=== PATIENT | male | born 1960 | race Caucasian/White ===

== ENCOUNTER 2016-12-13 10:39 | Emergency (ER) | payer OTHER, MEDICARE ==
[~2016-12-13] VITALS: Ht 177.8 cm; Wt 98.4 kg
[~2016-12-13 10:39] MED LIST: ALPR2TAB2 PO; AMIT50TA PO; ASPI-621 PO; CITA20TA5 PO; CLOP75TA22 PO; DOCU-30 PO; LOSA1TAB18 PO; METO25TA35 PO/NG; METO25TA4 PO; MIRT15TA4 PO; MIRT30TA4 PO; MORP15TA39 PO; OLAN10TA9 PO; OLAN5TAB9 PO; OMEP-110 PO; OXYC-302 PO; OXYC10TA6 PO; OXYC20TA42 PO; QUET300T6 PO; SIMV40TA3 PO; Simvastatin PO; VALS160T3 PO; ZOLP10TA PO
[2016-12-13] MEDS ORDERED: SODIUM CHLORIDE FLUSH 10ML SYR IVF ONE (11:00)
[2016-12-13] MEDS ORDERED: MORPHINE SULFATE 4 MG/ML, 1ML IVPush PRN (11:00)
[2016-12-13] MEDS ORDERED: ONDANSETRON 2MG/ML, 2ML IVPush ONE (11:00)
[2016-12-13] MEDS ORDERED: ASPIRIN 81 MG TABLET CHEW PO ONE (11:00)
[2016-12-13] MEDS ORDERED: ONDANSETRON 2MG/ML, 2ML ONE (11:01)
[2016-12-13] MEDS ORDERED: MORPHINE SULFATE 4 MG/ML, 1ML ONE (11:01)
[2016-12-13 11:38] LABS: ASPARTATE AMINO TRANSFERASE 14 U/L (15-37); BLOOD UREA NITROGEN 21 mg/dL (7-18)
[2016-12-13 11:42] LABS: IS PT STATUS REG ER OR PRE ER? YES
[2016-12-13] MEDS ORDERED: ASPIRIN 81 MG TABLET CHEW ONE (11:47)
[2016-12-13] MEDS ORDERED: MAALOX/HYOSCYAMINE/LIDOCAINE 45 ML BOTTLE ONE (12:25)
[2016-12-13] MEDS ORDERED: MAALOX/HYOSCYAMINE/LIDOCAINE 45 ML BOTTLE PO ONE (12:30)
[2016-12-13] MEDS ORDERED: OMNIPAQUE 350 MG/ML, 100ML BOTTLE ONE (13:40)
[2016-12-13 13:56] LABS: IS PT STATUS REG ER OR PRE ER? YES
[2016-12-13 15:06] VITALS: BP 128/70
== END 2016-12-13 15:08 | disposition home or self-care (01) ==
LOC: SUATTDRO 12:32 → ED 13:30
PROVIDERS: ATTEND Internal Medicine
DX: R07.89 Other chest pain (principal); R06.00 Dyspnea, unspecified; R61 Generalized hyperhidrosis; I10 Essential (primary) hypertension; J44.9 Chronic obstructive pulmonary disease, unspecified; E78.5 Hyperlipidemia, unspecified; I25.10 Atherosclerotic heart disease of native coronary artery without angina pectoris; Z95.1 Presence of aortocoronary bypass graft; Z87.891 Personal history of nicotine dependence
CPT/HCPCS: 36415; 71010; 71275; 80053; 84484; 85025; 85610; 85730; 93005; 96374; 99285; J2405; Q9967

== ENCOUNTER → 2017-01-27 | Outpatient (CLI) | payer OTHER, MEDICARE ==
[~2017-01-27] MED LIST changes: +FENTANYL PF 100 MCG/2ML ONE; +MIDAZOLAM 1 MG/ML, 5ML ONE
== END | disposition home or self-care (01) ==
LOC: RAD 11:56
PROVIDERS: ATTEND Family Medicine
DX: M48.07 Spinal stenosis, lumbosacral region (principal); M51.26 Other intervertebral disc displacement, lumbar region; M43.15 Spondylolisthesis, thoracolumbar region; M51.46 Schmorl's nodes, lumbar region; R60.0 Localized edema; M25.78 Osteophyte, vertebrae; Z98.1 Arthrodesis status
CPT/HCPCS: 72148; 99156; 99157; J2250; J3010

== ENCOUNTER → 2017-02-10 | Outpatient (CLI) | payer OTHER, MEDICARE ==
[~2017-02-10] MED LIST changes: -FENTANYL PF 100 MCG/2ML ONE; -MIDAZOLAM 1 MG/ML, 5ML ONE; +MORP-52 PO; -MORP15TA39 PO
== END | disposition home or self-care (01) ==
LOC: CVU 07:44
PROVIDERS: ATTEND Surgery Vascular Surgery
DX: I71.4 Abdominal aortic aneurysm, without rupture (principal)
CPT/HCPCS: 93978

== ENCOUNTER 2017-04-03 14:40 | Inpatient (IN) | payer OTHER, MEDICARE ==
[~2017-04-03] VITALS: Ht 180.3 cm; Wt 80.8 kg
[2017-04-03] MEDS ORDERED: ASPIRIN 81 MG TABLET CHEW PO ONE (15:00)
[2017-04-03] MEDS ORDERED: NITROGLYCERIN SINGLE TAB 0.4 MG SL ONE ×2 (15:13→18:14)
[2017-04-03] MEDS ORDERED: MORPHINE SULFATE 4 MG/ML, 1ML ONE ×2 (15:13→18:47)
[2017-04-03] MEDS ORDERED: ASPIRIN 81 MG TABLET CHEW ONE (15:13)
[2017-04-03] MEDS: MORPHINE SULFATE 4 MG/ML, 1ML IVPush PRN ×2 (15:17→18:50)
[2017-04-03] MEDS: NITROGLYCERIN SINGLE TAB 0.4 MG SL PRN (15:18)
[2017-04-03 15:27] LABS: HEMATOCRIT 52.3 % (39.2-51.8); HEMOGLOBIN 17.3 g/dL (13.7-18.0); WHITE BLOOD COUNT 11.8 x10^3/uL (3.4-10)
[2017-04-03] MEDS ORDERED: SODIUM CHLORIDE FLUSH 10ML SYR IVF ONE (15:30)
[2017-04-03 15:53] LABS: BLOOD UREA NITROGEN 20 mg/dL (7-18)
[2017-04-03] MEDS ORDERED: OMNIPAQUE 350 MG/ML, 100ML BOTTLE ONE (17:26)
[2017-04-03] MEDS ORDERED: HEPARIN 5,000 UNITS/ML, 1ML IV ONE (19:00)
[2017-04-03] MEDS ORDERED: HEPARIN 25,000 UNITS/500ML PMX 500 ML IV PRN (19:00)
[2017-04-03] MEDS ORDERED: NITROGLYCERIN OINT 2%, 1GM TP ONE ×2 (19:00→19:29)
[2017-04-03] MEDS ORDERED: HEPARIN 5,000 UNITS/ML, 1ML IV PRN (19:00)
[2017-04-03] MEDS ORDERED: HEPARIN 25,000 UNITS/500ML PMX 500 ML ONE (19:28)
[2017-04-03] MEDS ORDERED: HEPARIN 5,000 UNITS/ML, 1ML ONE (19:28)
[2017-04-03] MEDS ORDERED: MORPHINE SULFATE 4 MG/ML, 1ML IVPush ONE (19:30)
[2017-04-03] MEDS ORDERED: ACETAMINOPHEN 325 MG TABLET PO PRN (21:30)
[2017-04-03] MEDS ORDERED: ENALAPRILAT 1.25 MG/ML, 2ML IVPush PRN (21:30)
[2017-04-03] MEDS ORDERED: LORazepam 2 MG/ML, 1ML IVPush PRN (21:30)
[2017-04-03] MEDS ORDERED: ONDANSETRON 2MG/ML, 2ML IVPush PRN (21:30)
[2017-04-03 22:00] LABS: IS PT STATUS REG ER OR PRE ER? YES
[2017-04-03] MEDS: METOPROLOL TARTRATE 25 MG TABLET PO SCH (22:43)
[2017-04-03] MEDS: OLANZAPINE 10 MG TABLET PO SCH (22:44)
[2017-04-03] MEDS: MIRTAZAPINE 15 MG TABLET PO SCH (22:44)
[2017-04-03] MEDS: SIMVASTATIN 40 MG TABLET PO SCH (22:44)
[2017-04-03 23:00] VITALS: BP 128/87
[2017-04-03] MEDS ORDERED: ZOLPIDEM 5MG TABLET ONE (23:57)
[2017-04-04] MEDS: SODIUM CHLORIDE 0.9% 1,000 ML IV SCH ×2 (00:03→09:51)
[2017-04-04] MEDS: HYDROmorphone 2 MG/ML, 1ML IVPush PRN ×5 (00:03→12:28)
[2017-04-04] MEDS: ALPRazolam 1MG TABLET PO SCH ×4 (00:04→21:00)
[2017-04-04] MEDS: ZOLPIDEM 10MG TABLET PO SCH ×2 (00:04→21:00)
[2017-04-04 02:15] LABS: HEMATOCRIT 42.9 % (39.2-51.8); HEMOGLOBIN 14.4 g/dL (13.7-18.0)
[2017-04-04 02:17] LABS: BLOOD UREA NITROGEN 23 mg/dL (7-18)
[2017-04-04 02:22] LABS: IS PT STATUS REG ER OR PRE ER? NO
[2017-04-04 02:24] VITALS: BP 121/83
[2017-04-04 08:00] VITALS: BP 116/82
[2017-04-04] MEDS ORDERED: NITROGLYCERIN 0.4 MG BOTTLE (25 TABS) SL ONE (08:08)
[2017-04-04] MEDS: NITROGLYCERIN SINGLE TAB 0.4 MG SL PRN (08:10)
[2017-04-04] MEDS: METOPROLOL TARTRATE 25 MG TABLET PO SCH ×2 (08:11→19:33)
[2017-04-04] MEDS: HYDROCHLOROTHIAZIDE 12.5 MG CAPSULE PO SCH (08:11)
[2017-04-04] MEDS: ASPIRIN 81 MG TABLET EC PO SCH (08:11)
[2017-04-04] MEDS: LOSARTAN 50MG TABLET PO SCH (08:12)
[2017-04-04 14:00] VITALS: BP 99/67
[2017-04-04 19:04] VITALS: BP 111/73
[2017-04-04] MEDS: SIMVASTATIN 40 MG TABLET PO SCH (19:32)
[2017-04-04] MEDS: OLANZAPINE 10 MG TABLET PO SCH (19:33)
[2017-04-04] MEDS: MIRTAZAPINE 15 MG TABLET PO SCH (19:33)
[2017-04-05 02:20] VITALS: BP 95/74
[2017-04-05] MEDS ORDERED: REGADENOSON 0.4 MG/5 ML SYRINGE ONE (08:07)
[2017-04-05 08:37] VITALS: BP 127/90
[2017-04-05] MEDS: METOPROLOL TARTRATE 25 MG TABLET PO SCH (08:38)
[2017-04-05] MEDS: LOSARTAN 50MG TABLET PO SCH (08:38)
[2017-04-05] MEDS: HYDROCHLOROTHIAZIDE 12.5 MG CAPSULE PO SCH (08:38)
[2017-04-05] MEDS: ASPIRIN 81 MG TABLET EC PO SCH (08:38)
[2017-04-05] MEDS: ALPRazolam 1MG TABLET PO SCH ×3 (09:00→21:18)
[2017-04-05 14:24] VITALS: BP 125/86
[2017-04-05] MEDS ORDERED: ACETAMINOPHEN 325 MG TABLET PO PRN (16:00)
[2017-04-05] MEDS ORDERED: ONDANSETRON 2MG/ML, 2ML IVPush PRN (16:00)
[2017-04-05] MEDS ORDERED: ENALAPRILAT 1.25 MG/ML, 2ML IVPush PRN (16:00)
[2017-04-05] MEDS ORDERED: LORazepam 2 MG/ML, 1ML IVPush PRN (16:00)
[2017-04-05] MEDS ORDERED: NITROGLYCERIN SINGLE TAB 0.4 MG SL PRN (16:00)
[2017-04-05 20:35] VITALS: BP 121/63
[2017-04-05] MEDS: SIMVASTATIN 40 MG TABLET PO SCH (20:51)
[2017-04-05] MEDS: MIRTAZAPINE 15 MG TABLET PO SCH (20:51)
[2017-04-05] MEDS: OLANZAPINE 10 MG TABLET PO SCH (20:52)
[2017-04-05] MEDS: ZOLPIDEM 10MG TABLET PO SCH (21:18)
[2017-04-05 23:13] LABS: IS PT STATUS REG ER OR PRE ER? NO
[2017-04-06 06:43] VITALS: BP 109/87
[2017-04-06] MEDS: HYDROCHLOROTHIAZIDE 12.5 MG CAPSULE PO SCH (08:28)
[2017-04-06] MEDS: LOSARTAN 50MG TABLET PO SCH (08:28)
[2017-04-06] MEDS: ASPIRIN 81 MG TABLET EC PO SCH (08:28)
[2017-04-06] MEDS ORDERED: ZOLPIDEM 5MG TABLET PO SCH (21:00)
== END 2017-04-06 15:11 | disposition home or self-care (01) | DRG 313 ==
LOC: ED 17:58 → OBSVTOIN 18:48 → INTOOBSV 18:48 → EDIP 18:48 → ICU 23:32 → DCLOUNGE 04-06 15:06
PROVIDERS: ADMIT Family Medicine; ATTEND Family Medicine
DX: R07.89 Other chest pain (principal); I25.2 Old myocardial infarction; I10 Essential (primary) hypertension; F43.10 Post-traumatic stress disorder, unspecified; I25.10 Atherosclerotic heart disease of native coronary artery without angina pectoris; F32.9 Major depressive disorder, single episode, unspecified; J44.9 Chronic obstructive pulmonary disease, unspecified; E66.9 Obesity, unspecified; E78.5 Hyperlipidemia, unspecified; F12.90 Cannabis use, unspecified, uncomplicated; G47.33 Obstructive sleep apnea (adult) (pediatric); G89.29 Other chronic pain; R79.1 Abnormal coagulation profile; Z68.30 Body mass index [BMI] 30.0-30.9, adult; Z79.82 Long term (current) use of aspirin; Z82.49 Family history of ischemic heart disease and other diseases of the circulatory system; Z83.3 Family history of diabetes mellitus; Z86.79 Personal history of other diseases of the circulatory system; Z87.891 Personal history of nicotine dependence; Z95.1 Presence of aortocoronary bypass graft; Z98.1 Arthrodesis status; R00.1 Bradycardia, unspecified; T44.7X5A Adverse effect of beta-adrenoreceptor antagonists, initial encounter
CPT/HCPCS: 36415; 71010; 71275; 78452; 80048; 82040; 83735; 83880; 84100; 84439; 84443; 84484; 85025; 85379; 85520; 85610; 85730; 87081; 93005; 93017; 96365; 96366; 96375; 96376; J1170; J1644; J2785; Q9967; A9502; C9898; J7030

== ENCOUNTER 2017-09-11 14:13 | Inpatient (IN) | payer OTHER, MEDICARE ==
[~2017-09-11] VITALS: Ht 177.8 cm; Wt 101.1 kg
[~2017-09-11 14:13] MED LIST changes: -CLOP75TA22 PO; +CLOP75TA52 PO; +DOCU-131 PO; -DOCU-30 PO; -LOSA1TAB18 PO; +LOSA1TAB25 PO
[2017-09-11] MEDS ORDERED: SODIUM CHLORIDE FLUSH 10ML SYR IVF ONE (14:30)
[2017-09-11 14:40] LABS: BASOPHILS # (AUTO) 0.17 x10^3/uL (0-0.1); BASOPHILS % (AUTO) 2 % (0-1); EOSINOPHILS # (AUTO) 0.22 x10^3/uL (0-0.4); EOSINOPHILS % (AUTO) 2 % (1-7); LYMPHOCYTES # (AUTO) 2.79 x10^3/uL (1-3.4); LYMPHOCYTES % (AUTO) 28 % (22-44); MD NO; MEAN CORPUSCULAR HEMOGLOBIN 30.5 pg (27.5-34.5); MEAN CORPUSCULAR VOLUME 89.8 fL (81-97); MEAN PLATELET VOLUME 7.4 fL (7.4-10.4); MONOCYTES # (AUTO) 0.74 x10^3/uL (0.2-0.8); MONOCYTES % (AUTO) 8 % (2-9); NEUTROPHILS # (AUTO) 6.04 x10^3/uL (1.8-6.8); NEUTROPHILS % (AUTO) 61 % (42-75); PLATELET COUNT 236 x10^3/uL (130-400); RED BLOOD COUNT 5.27 x10^6/uL (4.38-5.82); RED CELL DISTRIBUTION WIDTH 13.7 % (9.4-14.8)
[2017-09-11] MEDS ORDERED: FENTANYL PF 100 MCG/2ML ONE (14:51)
[2017-09-11 14:52] LABS: ALANINE AMINOTRANSFERASE 49 U/L (12-78); ALBUMIN 3.7 g/dL (3.4-5.0); ANION GAP 5 mmol/L (5-15); CALCIUM 8.7 mg/dL (8.5-10.1); CHLORIDE 106 mmol/L (98-107); CREATININE 0.97 mg/dL (0.7-1.3)
[2017-09-11] MEDS ORDERED: ONDANSETRON 2MG/ML, 2ML ONE (14:52)
[2017-09-11 14:56] LABS: ALKALINE PHOSPHATASE 81 U/L (45-117); BILIRUBIN,TOTAL 0.4 mg/dL (0.2-1.0); TOTAL PROTEIN 6.9 g/dL (6.4-8.2); TROPONIN I < 0.015 ng/mL (0.000-0.045)
[2017-09-11] MEDS ORDERED: ONDANSETRON 2MG/ML, 2ML IVPush ONE (15:00)
[2017-09-11] MEDS ORDERED: FENTANYL PF 100 MCG/2ML IV ONE (15:00)
[2017-09-11] MEDS ORDERED: LOSA1TAB19 PO (15:14)
[2017-09-11] MEDS ORDERED: ISOS40TA11 PO (15:16)
[2017-09-11] MEDS ORDERED: PANT20TA3 PO (15:16)
[2017-09-11] MEDS ORDERED: POLYETHYLENE GLYCOL 17 GM PACKET PO PRN (16:00)
[2017-09-11] MEDS ORDERED: ONDANSETRON 2MG/ML, 2ML IVPush PRN (16:00)
[2017-09-11] MEDS ORDERED: ENOXAPARIN 40 MG/0.4 ML SQ SCH (16:00)
[2017-09-11] MEDS ORDERED: LABETALOL 5MG/ML, 20ML IVPush PRN (16:00)
[2017-09-11 16:25] LABS: TROPONIN I < 0.015 ng/mL (0.000-0.045)
[2017-09-11 16:27] LABS: FREE T4 (FREE THYROXINE) 0.89 ng/dL (0.76-1.46)
[2017-09-11] MEDS ORDERED: GABA300C10 PO (16:28)
[2017-09-11] MEDS: morphine SULFATE 10 MG/ML, 1ML IVPush PRN ×2 (16:36→18:31)
[2017-09-11] MEDS: HYDROcodone/APAP 5/325 TABLET PO PRN ×2 (16:37→20:24)
[2017-09-11 16:40] VITALS: BP 132/88
[2017-09-11] MEDS ORDERED: ALPRazolam 1MG TABLET ONE (18:26)
[2017-09-11] MEDS: ALPRazolam 1MG TABLET PO SCH (18:31)
[2017-09-11 20:11] VITALS: BP 108/69
[2017-09-11] MEDS: GABAPENTIN 300 MG CAPSULE PO SCH (20:24)
[2017-09-11] MEDS: PANTOPRAZOLE 20MG TABLET PO SCH (20:25)
[2017-09-11] MEDS ORDERED: MIRTAZAPINE 15 MG TABLET PO SCH (21:00)
[2017-09-11] MEDS ORDERED: ISOSORBIDE DINITRATE 20 MG TABLET PO SCH (21:00)
[2017-09-11] MEDS ORDERED: OLANZAPINE 10 MG TABLET PO SCH (21:00)
[2017-09-11] MEDS ORDERED: ALPRazolam 1MG TABLET PO SCH (21:00)
[2017-09-11 22:42] LABS: TROPONIN I < 0.015 ng/mL (0.000-0.045)
[2017-09-12] MEDS: ALPRazolam 1MG TABLET PO SCH ×2 (00:04→08:10)
[2017-09-12 02:35] VITALS: BP 105/78
[2017-09-12] MEDS: morphine SULFATE 10 MG/ML, 1ML IVPush PRN ×3 (02:39→12:51)
[2017-09-12 05:52] LABS: BASOPHILS # (AUTO) 0.07 x10^3/uL (0-0.1); BASOPHILS % (AUTO) 1 % (0-1); EOSINOPHILS % (AUTO) 4 % (1-7); LYMPHOCYTES # (AUTO) 2.63 x10^3/uL (1-3.4); LYMPHOCYTES % (AUTO) 33 % (22-44); MD NO; MEAN CORPUSCULAR HGB CONC 34.1 g/dL (33.2-36.2); MEAN PLATELET VOLUME 7.9 fL (7.4-10.4); MONOCYTES # (AUTO) 0.51 x10^3/uL (0.2-0.8); MONOCYTES % (AUTO) 7 % (2-9); NEUTROPHILS # (AUTO) 4.38 x10^3/uL (1.8-6.8); NEUTROPHILS % (AUTO) 56 % (42-75); PLATELET COUNT 218 x10^3/uL (130-400); RED BLOOD COUNT 4.83 x10^6/uL (4.38-5.82); RED CELL DISTRIBUTION WIDTH 14.1 % (9.4-14.8)
[2017-09-12 05:54] LABS: ALANINE AMINOTRANSFERASE 42 U/L (12-78); ANION GAP 6 mmol/L (5-15); CALCIUM 7.8 mg/dL (8.5-10.1); CHLORIDE 106 mmol/L (98-107); CHOLESTEROL, TOTAL 143 mg/dL (140-239); CREATININE 1.03 mg/dL (0.7-1.3); TRIGLYCERIDES 166 mg/dL (50-200); VLDL CHOLESTEROL 33 mg/dL (0-25)
[2017-09-12 05:56] LABS: ALKALINE PHOSPHATASE 70 U/L (45-117); BILIRUBIN,TOTAL 0.4 mg/dL (0.2-1.0); HDL CHOL % 17 % (26-37); HDL CHOLESTEROL (DIRECT) 24 mg/dL (40-60); LDL CHOLESTEROL,CALCULATED 86 mg/dL (54-169); LDL/HDL RATIO 3.6 (0.5-3.0); TOTAL PROTEIN 5.9 g/dL (6.4-8.2)
[2017-09-12 07:38] VITALS: BP 130/87
[2017-09-12] MEDS: HYDROcodone/APAP 5/325 TABLET PO PRN ×2 (08:09→12:51)
[2017-09-12] MEDS: GABAPENTIN 300 MG CAPSULE PO SCH (08:10)
[2017-09-12] MEDS ORDERED: LOSARTAN 50MG TABLET PO SCH (09:00)
[2017-09-12] MEDS ORDERED: HYDROCHLOROTHIAZIDE 12.5 MG CAPSULE PO SCH (09:00)
[2017-09-12] MEDS ORDERED: ASPIRIN 81 MG TABLET EC PO SCH (09:00)
[2017-09-12] MEDS ORDERED: SENNA/DOCUSATE TABLET PO SCH (09:00)
[2017-09-12] MEDS: PANTOPRAZOLE 20MG TABLET PO SCH (09:23)
[2017-09-12] MEDS ORDERED: IBUPROFEN 200 MG TABLET ONE (11:17)
[2017-09-12] MEDS ORDERED: IBUPROFEN 200 MG TABLET PO PRN (11:30)
[2017-09-12] MEDS ORDERED: MORPHINE SULFATE 4 MG/ML, 1ML ONE (12:49)
[2017-09-12 13:14] VITALS: BP 115/82
[2017-09-12] MEDS ORDERED: IBUP-1484 PO (13:36)
[2017-09-12] MEDS ORDERED: SUCR1TAB33 PO (13:36)
[2017-09-12] MEDS ORDERED: ONDA4TAB13 SL (13:36)
[2017-09-12] MEDS ORDERED: ALPR2TAB2 PO (13:50)
== END 2017-09-12 15:06 | disposition home or self-care (01) | DRG 392 ==
LOC: ED 15:28 → EDIP 15:48 → EDLOC 15:48 → 5SO 16:25
PROVIDERS: ADMIT Hospitalist; ATTEND Internal Medicine
DX: K21.9 Gastro-esophageal reflux disease without esophagitis (principal); F20.9 Schizophrenia, unspecified; I25.110 Atherosclerotic heart disease of native coronary artery with unstable angina pectoris; Z95.1 Presence of aortocoronary bypass graft; E78.5 Hyperlipidemia, unspecified; I10 Essential (primary) hypertension; F32.9 Major depressive disorder, single episode, unspecified; G89.29 Other chronic pain; F41.9 Anxiety disorder, unspecified; Z82.49 Family history of ischemic heart disease and other diseases of the circulatory system
CPT/HCPCS: 36415; 71045; 80053; 80061; 84439; 84484; 85025; 93005; 93306; 96374; 96375; J1650; J2405; J3010; J2270

== ENCOUNTER → 2017-11-05 | Outpatient (CLI) | payer OTHER, MEDICARE ==
[~2017-11-05] MED LIST changes: +GABA300C10 PO; +IBUP-1484 PO; +ISOS40TA11 PO; +LOSA1TAB19 PO; +OMNIPAQUE 350 MG/ML, 100ML BOTTLE ONE; +ONDA4TAB13 SL; +PANT20TA3 PO; +SUCR1TAB33 PO
== END | disposition home or self-care (01) ==
LOC: CFH 08:30
PROVIDERS: ATTEND Surgery Vascular Surgery
DX: I71.4 Abdominal aortic aneurysm, without rupture (principal); N40.0 Benign prostatic hyperplasia without lower urinary tract symptoms
CPT/HCPCS: 74174; Q9967

== ENCOUNTER 2018-03-21 14:52 | Emergency (ER) | payer OTHER, MEDICARE ==
[~2018-03-21] VITALS: Ht 177.8 cm; Wt 108.0 kg
[~2018-03-21 14:52] MED LIST changes: -CITA20TA5 PO; +CITA20TA6 PO; +OLAN20TA7 PO; -OMNIPAQUE 350 MG/ML, 100ML BOTTLE ONE
[2018-03-21 15:03] VITALS: BP 124/82
[2018-03-21] MEDS ORDERED: HYDROcodone/APAP 5/325 TABLET PO PRN (15:30)
[2018-03-21] MEDS ORDERED: CYCLOBENZAPRINE 10 MG TABLET PO ONE (15:30)
[2018-03-21] MEDS ORDERED: CYCLOBENZAPRINE 10 MG TABLET ONE (15:44)
[2018-03-21] MEDS ORDERED: HYDROcodone/APAP 5/325 TABLET ONE ×2 (15:45→17:01)
[2018-03-21] MEDS ORDERED: HYDROcodone/APAP 5/325 TABLET PO ONE (17:00)
== END 2018-03-21 17:53 | disposition home or self-care (01) ==
LOC: ED 16:46
DX: S39.012A Strain of muscle, fascia and tendon of lower back, initial encounter (principal); J44.9 Chronic obstructive pulmonary disease, unspecified; I10 Essential (primary) hypertension; E78.5 Hyperlipidemia, unspecified; I25.10 Atherosclerotic heart disease of native coronary artery without angina pectoris; Z95.1 Presence of aortocoronary bypass graft; W11.XXXA Fall on and from ladder, initial encounter; Y93.89 Activity, other specified; Y99.8 Other external cause status; Y92.009 Unspecified place in unspecified non-institutional (private) residence as the place of occurrence of the external cause; Z87.891 Personal history of nicotine dependence
CPT/HCPCS: 72110; 72190; 99284

== ENCOUNTER → 2018-05-03 | Outpatient (CLI) | payer OTHER, MEDICARE ==
[~2018-05-03] MED LIST changes: +FENTANYL PF 100 MCG/2ML ONE; +FLUMAZENIL 0.1 MG/1 ML, 5ML ONE; +MIDAZOLAM 1 MG/ML, 5ML ONE; +NALOXONE 1 MG/ML, 2ML ONE
== END | disposition home or self-care (01) ==
LOC: RAD 11:50
PROVIDERS: ATTEND Orthopaedic Surgery
DX: S32.391A Other fracture of right ilium, initial encounter for closed fracture (principal); S32.511A Fracture of superior rim of right pubis, initial encounter for closed fracture; S73.191A Other sprain of right hip, initial encounter; X58.XXXA Exposure to other specified factors, initial encounter; Y93.89 Activity, other specified; Y92.89 Other specified places as the place of occurrence of the external cause; Y99.8 Other external cause status
CPT/HCPCS: 73721; 99156; 99157; J2250; J3010; J2310

== ENCOUNTER → 2018-05-10 | Outpatient (CLI) | payer OTHER, MEDICARE ==
[~2018-05-10] MED LIST changes: -FENTANYL PF 100 MCG/2ML ONE; -FLUMAZENIL 0.1 MG/1 ML, 5ML ONE; -MIDAZOLAM 1 MG/ML, 5ML ONE; -NALOXONE 1 MG/ML, 2ML ONE
== END | disposition home or self-care (01) ==
LOC: RAD 10:17
PROVIDERS: ATTEND Nurse Practitioner Family
DX: R06.02 Shortness of breath (principal); J44.9 Chronic obstructive pulmonary disease, unspecified
CPT/HCPCS: 71046

== ENCOUNTER 2019-02-23 16:59 | Inpatient (IN) | payer OTHER, MEDICARE ==
[~2019-02-23] VITALS: Ht 177.8 cm; Wt 99.9 kg
[~2019-02-23 16:59] MED LIST changes: -ASPI-621 PO; +ASPI81TA45 PO; +BUPR150T73 PO; -QUET300T6 PO; +QUET300T7 PO
--- NOTE | 2019-02-23 17:00 | NUR ---
PT PRESENTS WITH C/O CHEST PAIN AT 8/10 AND L ARM PAIN. PT HAS A HX OF SC.
[2019-02-23 17:29] LABS: BASOPHILS # (AUTO) 0.05 x10^3/uL (0-0.1); BASOPHILS % (AUTO) 1 % (0-1); EOSINOPHILS # (AUTO) 0.14 x10^3/uL (0-0.4); EOSINOPHILS % (AUTO) 1 % (1-7); LYMPHOCYTES # (AUTO) 2.54 x10^3/uL (1-3.4); LYMPHOCYTES % (AUTO) 26 % (22-44); MD NO; MEAN CORPUSCULAR HEMOGLOBIN 30.6 pg (27.5-34.5); MEAN CORPUSCULAR HGB CONC 33.6 g/dL (33.2-36.2); MEAN CORPUSCULAR VOLUME 91.2 fL (81-97); MEAN PLATELET VOLUME 7.8 fL (7.4-10.4); MONOCYTES # (AUTO) 0.52 x10^3/uL (0.2-0.8); MONOCYTES % (AUTO) 5 % (2-9); NEUTROPHILS # (AUTO) 6.63 x10^3/uL (1.8-6.8); NEUTROPHILS % (AUTO) 67 % (42-75); PLATELET COUNT 232 x10^3/uL (130-400); RED BLOOD COUNT 5.46 x10^6/uL (4.38-5.82); RED CELL DISTRIBUTION WIDTH 13.8 % (9.4-14.8)
[2019-02-23 17:33] LABS: ANION GAP 8 mmol/L (5-15); CALCIUM 9.2 mg/dL (8.5-10.1); CHLORIDE 107 mmol/L (98-107); CREATININE 1.18 mg/dL (0.7-1.3)
[2019-02-23 17:36] LABS: TROPONIN I < 0.015 ng/mL (0.000-0.045)
[2019-02-23] MEDS ORDERED: NITROGLYCERIN SINGLE TAB 0.4 MG SL ONE ×2 (17:54→18:00)
[2019-02-23] MEDS ORDERED: ASPIRIN 81 MG TABLET CHEW ONE (17:54)
[2019-02-23 17:58] LABS: INTERNATIONAL NORMALIZED RATIO 0.98 (0.93-1.1); PROTHROMBIN TIME 10.3 Seconds (9.6-11.5)
[2019-02-23] MEDS ORDERED: HEPARIN 5,000 UNITS/ML, 1ML IV PRN (18:00)
[2019-02-23] MEDS ORDERED: HEPARIN 25,000 UNITS/500ML PMX 500 ML IV PRN (18:00)
[2019-02-23] MEDS ORDERED: ASPIRIN 81 MG TABLET CHEW PO ONE (18:00)
[2019-02-23] MEDS ORDERED: HEPARIN 5,000 UNITS/ML, 1ML IV ONE (18:00)
--- NOTE | 2019-02-23 18:00 | NUR ---
PT GIVEN ASA AND NITRO. BP MONITORING BEFORE AND AFTER ADMIN. NAD. PT PROVIDED WITH EDUCATION REGARDING SL NITRO AND HOW TO TAKE IT.
--- NOTE | 2019-02-23 18:08 | NUR ---
NITRO GIVEN 10 MIN AGO, PT REPORTS NO CHANGE IN PAIN LEVEL. STILL 03/26.
[2019-02-23] MEDS ORDERED: HEPARIN 5,000 UNITS/ML, 1ML ONE (18:12)
[2019-02-23] MEDS ORDERED: HEPARIN 25,000 UNITS/500ML PMX 500 ML ONE (18:13)
--- NOTE | 2019-02-23 18:30 | NUR ---
REPORT GIVEN TO JENNIFER
[2019-02-23 19:25] VITALS: BP 113/61
[2019-02-23] MEDS ORDERED: NITROGLYCERIN 0.4 MG BOTTLE (25 TABS) SL ONE (19:28)
[2019-02-23] MEDS ORDERED: NITROGLYCERIN 0.4 MG BOTTLE (25 TABS) SL PRN (19:30)
[2019-02-23] MEDS ORDERED: NITROGLYCERIN 0.4 MG/SPRAY SL PRN (19:30)
[2019-02-23 19:41] VITALS: BP 125/80
[2019-02-23] MEDS ORDERED: MIRTAZAPINE 30 MG TABLET PO SCH (21:00)
[2019-02-23] MEDS ORDERED: TEMAZEPAM 15 MG CAPSULE PO PRN (21:00)
[2019-02-23] MEDS ORDERED: OLANZAPINE 10 MG TABLET PO SCH (21:00)
[2019-02-23] MEDS ORDERED: ALPRazolam 1MG TAB PO PRN (21:00)
[2019-02-23] MEDS ORDERED: ISOSORBIDE DINITRATE 30 MG TABLET PO SCH (21:00)
[2019-02-23] MEDS ORDERED: ACETAMINOPHEN 325 MG TABLET PO PRN (21:00)
[2019-02-23] MEDS ORDERED: DOCUSATE 100 MG CAPSULE PO PRN (21:00)
[2019-02-23] MEDS ORDERED: SIMVASTATIN 40 MG TABLET PO SCH (21:00)
[2019-02-23] MEDS ORDERED: ENALAPRILAT 1.25 MG/ML, 2ML IVPush PRN (21:00)
[2019-02-23] MEDS ORDERED: ONDANSETRON 2MG/ML, 2ML IVPush PRN (21:00)
[2019-02-23 21:48] LABS: TROPONIN I < 0.015 ng/mL (0.000-0.045)
[2019-02-23] MEDS ORDERED: MORPHINE SULFATE 4 MG/ML, 1ML IVPush PRN (22:00)
[2019-02-24 01:11] VITALS: BP 101/68
[2019-02-24 03:55] LABS: BASOPHILS # (AUTO) 0.14 x10^3/uL (0-0.1); BASOPHILS % (AUTO) 1 % (0-1); EOSINOPHILS # (AUTO) 0.29 x10^3/uL (0-0.4); EOSINOPHILS % (AUTO) 3 % (1-7); LYMPHOCYTES # (AUTO) 3.42 x10^3/uL (1-3.4); LYMPHOCYTES % (AUTO) 35 % (22-44); MD NO; MEAN CORPUSCULAR HEMOGLOBIN 30.5 pg (27.5-34.5); MEAN CORPUSCULAR HGB CONC 33.3 g/dL (33.2-36.2); MEAN CORPUSCULAR VOLUME 91.5 fL (81-97); MEAN PLATELET VOLUME 7.9 fL (7.4-10.4); MONOCYTES % (AUTO) 7 % (2-9); NEUTROPHILS # (AUTO) 5.31 x10^3/uL (1.8-6.8); NEUTROPHILS % (AUTO) 54 % (42-75); PLATELET COUNT 209 x10^3/uL (130-400); RED BLOOD COUNT 5.02 x10^6/uL (4.38-5.82); RED CELL DISTRIBUTION WIDTH 13.8 % (9.4-14.8)
[2019-02-24 04:02] LABS: ANION GAP 7 mmol/L (5-15); CALCIUM 8.4 mg/dL (8.5-10.1); CHLORIDE 109 mmol/L (98-107); CREATININE 1.14 mg/dL (0.7-1.3)
[2019-02-24 04:06] LABS: TROPONIN I < 0.015 ng/mL (0.000-0.045)
[2019-02-24 06:59] VITALS: BP 136/93
[2019-02-24] MEDS ORDERED: ASPIRIN 81 MG TABLET EC PO SCH (09:00)
[2019-02-24] MEDS ORDERED: BUPROPION SR 150 MG TABLET PO SCH (09:00)
[2019-02-24] MEDS ORDERED: LOSARTAN 50MG TABLET PO SCH (09:00)
[2019-02-24] MEDS ORDERED: HYDROCHLOROTHIAZIDE 12.5 MG CAPSULE PO SCH (09:00)
[2019-02-24] MEDS ORDERED: TEMPLATE NON-FORMULARY MED. (Losartan/Hydrochlorothiazide** (Losartan-Hctz 50-12.5 Mg Tab PO SCH (09:00)
[2019-02-24] MEDS ORDERED: ISOS30TA8 PO (10:56)
== END 2019-02-24 12:45 | disposition home or self-care (01) | DRG 303 ==
LOC: ED 17:50 → EDIP 18:02 → 5SO 19:05 → DCLOUNGE 02-24 12:35
PROVIDERS: ADMIT Internal Medicine; ATTEND Internal Medicine
DX: I25.110 Atherosclerotic heart disease of native coronary artery with unstable angina pectoris (principal); J96.10 Chronic respiratory failure, unspecified whether with hypoxia or hypercapnia; E78.5 Hyperlipidemia, unspecified; F12.90 Cannabis use, unspecified, uncomplicated; F20.9 Schizophrenia, unspecified; F32.9 Major depressive disorder, single episode, unspecified; F41.9 Anxiety disorder, unspecified; G47.33 Obstructive sleep apnea (adult) (pediatric); I11.9 Hypertensive heart disease without heart failure; I25.2 Old myocardial infarction; I73.9 Peripheral vascular disease, unspecified; J44.9 Chronic obstructive pulmonary disease, unspecified; K21.9 Gastro-esophageal reflux disease without esophagitis; Z82.49 Family history of ischemic heart disease and other diseases of the circulatory system; Z83.3 Family history of diabetes mellitus; Z86.79 Personal history of other diseases of the circulatory system; Z87.891 Personal history of nicotine dependence; Z95.1 Presence of aortocoronary bypass graft
CPT/HCPCS: 36415; 71045; 80048; 82040; 83735; 84484; 85025; 85520; 85610; 93005; 96374; 99291; G0378; J1644; J2270

== ENCOUNTER → 2019-07-11 | Outpatient (CLI) | payer OTHER, MEDICARE ==
[~2019-07-11] MED LIST changes: -IBUP-1484 PO; +IBUP-1902 PO; +ISOS30TA8 PO; +MIRT-34 PO; -MIRT15TA4 PO; +OLAN20TA14 PO; -OLAN20TA7 PO
== END | disposition home or self-care (01) ==
LOC: CVU 06:46
PROVIDERS: ATTEND Surgery Vascular Surgery
DX: I71.4 Abdominal aortic aneurysm, without rupture (principal); K21.9 Gastro-esophageal reflux disease without esophagitis; I10 Essential (primary) hypertension; E78.00 Pure hypercholesterolemia, unspecified; Z98.890 Other specified postprocedural states; J44.9 Chronic obstructive pulmonary disease, unspecified; E78.5 Hyperlipidemia, unspecified; Z87.891 Personal history of nicotine dependence
CPT/HCPCS: 93978

== ENCOUNTER 2019-08-05 11:31 | Outpatient (CLI) | payer OTHER, MEDICARE ==
[2019-08-05] MEDS ORDERED: OMNIPAQUE 350 MG/ML, 100ML BOTTLE ONE (15:05)
== END 2019-08-05 23:59 | disposition home or self-care (01) ==
LOC: CFH 11:31
PROVIDERS: ATTEND Surgery Vascular Surgery
DX: I71.4 Abdominal aortic aneurysm, without rupture (principal); K21.9 Gastro-esophageal reflux disease without esophagitis; E78.00 Pure hypercholesterolemia, unspecified; I10 Essential (primary) hypertension; K76.0 Fatty (change of) liver, not elsewhere classified; F41.9 Anxiety disorder, unspecified; F32.9 Major depressive disorder, single episode, unspecified; F17.200 Nicotine dependence, unspecified, uncomplicated; Z79.82 Long term (current) use of aspirin; Z79.899 Other long term (current) drug therapy
CPT/HCPCS: 74174; 82565; Q9967

== ENCOUNTER → 2019-09-01 | Outpatient (CLI) | payer OTHER, MEDICARE ==
[~2019-09-01] MED LIST changes: +REGADENOSON 0.4 MG/5 ML SYRINGE ONE
== END | disposition home or self-care (01) ==
LOC: CFH 11:53
PROVIDERS: ATTEND Internal Medicine Cardiovascular Disease
DX: R07.9 Chest pain, unspecified (principal); I10 Essential (primary) hypertension
CPT/HCPCS: 78452; 93017; A9502; J2785

== ENCOUNTER 2019-10-05 17:56 | Inpatient (IN) | payer OTHER, MEDICARE ==
[~2019-10-05] VITALS: Ht 177.8 cm; Wt 100.0 kg
[~2019-10-05 17:56] MED LIST changes: -REGADENOSON 0.4 MG/5 ML SYRINGE ONE; +SIMV40TA20 PO; -SIMV40TA3 PO
[2019-10-05] MEDS ORDERED: ALBUTEROL/IPRATROPIUM 2.5MG/0.5MG, 3 ML NPPB ONE (19:30)
[2019-10-05 19:36] LABS: RAPID INFLUENZA A Negative (Negative); RAPID INFLUENZA B Negative (Negative)
--- NOTE | 2019-10-05 19:40 | NUR ---
rt at bedside
[2019-10-05 19:41] LABS: MD YES; MEAN CORPUSCULAR HEMOGLOBIN 30.7 pg (27.5-34.5); MEAN CORPUSCULAR HGB CONC 33.5 g/dL (33.2-36.2); MEAN CORPUSCULAR VOLUME 91.7 fL (81-97); MEAN PLATELET VOLUME 8.3 fL (7.4-10.4); PLATELET COUNT 283 x10^3/uL (130-400); RED BLOOD COUNT 5.79 x10^6/uL (4.38-5.82); RED CELL DISTRIBUTION WIDTH 14.6 % (9.4-14.8)
[2019-10-05 19:50] LABS: ALBUMIN 4.7 g/dL (3.4-5.0); ANION GAP 15 mmol/L (5-15); CALCIUM 9.8 mg/dL (8.5-10.1); CHLORIDE 108 mmol/L (98-107)
[2019-10-05] MEDS ORDERED: LORazepam 2 MG/ML, 1ML ONE ×2 (19:56→20:46)
[2019-10-05 19:57] LABS: ALANINE AMINOTRANSFERASE 51 U/L (12-78); ALKALINE PHOSPHATASE 92 U/L (45-117); BILIRUBIN,TOTAL 1.3 mg/dL (0.2-1.0); CREATININE 1.42 mg/dL (0.7-1.3); TOTAL PROTEIN 8.7 g/dL (6.4-8.2); TROPONIN I < 0.015 ng/mL (0.000-0.045)
[2019-10-05] MEDS ORDERED: LORazepam 2 MG/ML, 1ML IVPush ONE ×2 (20:00→21:00)
[2019-10-05 20:07] LABS: <PLATELET ESTIMATE> ADEQUATE; <PLT MORPHOLOGY> NORMAL PLT MORPH; <RBC MORPHOLOGY> NORMAL; BANDS%(MANUAL) 2 % (0-7); LYMPH#(MANUAL) 1.59 x10^3/uL (1-3.4); LYMPHS% (MANUAL) 8 % (22-44); MONOS#(MANUAL) 1.19 x10^3/uL (0.3-2.7); MONOS% (MANUAL) 6 % (2-9); SEG#(MANUAL) 16.72 x10^3/uL (1.8-6.8); SEGS% (MANUAL) 84 % (42-75)
--- NOTE | 2019-10-05 20:08 | NUR ---
piv placed then medicated per emar
--- NOTE | 2019-10-05 20:41 | NUR ---
WITH REASSESSMENT ANXIETY REMAINS 05/26 DESPITE EARLIER MEDICATION PROVIDER TO BEDSIDE-TO FURTHER MEDICATE
[2019-10-05] MEDS ORDERED: MORPHINE SULFATE 4 MG/ML, 1ML ONE (20:46)
--- NOTE | 2019-10-05 20:53 | NUR ---
remedicated per emar for continued anxiety/chest pain rated at 8/10 vss on monitoring coordinator updated on estimated poc
[2019-10-05] MEDS ORDERED: morphine SULFATE 10 MG/ML, 1ML IVPush ONE (21:00)
--- NOTE | 2019-10-05 21:12 | NUR ---
PAIN AND ANXIETY TO 0/10 VSS ON LINE PATROLLER ER PROVIDER TO BEDSIDE-PLAN TO ADMIT MED RECC UPDATED
[2019-10-05] MEDS ORDERED: UMEC1DIS INH (21:24)
[2019-10-05] MEDS ORDERED: ESCI20TA PO (21:24)
[2019-10-05] MEDS ORDERED: DEXL60CA2 PO (21:24)
[2019-10-05] MEDS ORDERED: OLAN15TA9 PO (21:24)
[2019-10-05] MEDS ORDERED: ALPR2TAB2 PO (21:24)
[2019-10-05] MEDS ORDERED: SODIUM CHLORIDE 0.9% 1,000 ML IV SCH (21:57)
[2019-10-05] MEDS ORDERED: PROMETHAZINE 25 MG/ML, 1ML IM PRN (22:00)
--- NOTE | 2019-10-05 22:23 | NUR ---
Provided with turkey sandwich and water for dinner after clarification with ER MD FLORES on 2l nc on glass deposition tender Denies cp/palpitations/abd pain/sob
--- NOTE | 2019-10-05 22:28 | NUR ---
Inpatient Rn unavailable for report. To call back for report shortly
[2019-10-05] MEDS ORDERED: LORazepam 2 MG/ML, 1ML IVPush PRN (22:30)
[2019-10-05] MEDS ORDERED: hydrALAzine 20 MG/ML, 1ML IV PRN (22:30)
[2019-10-05 23:08] VITALS: BP 113/54
[2019-10-05] MEDS ORDERED: NITROGLYCERIN 0.4 MG/SPRAY SL PRN (23:30)
[2019-10-05] MEDS: HEPARIN 5,000 UNITS/ML, 1ML SQ SCH (23:45)
[2019-10-05 23:59] VITALS: BP 140/89
[2019-10-06] MEDS: NITROGLYCERIN 0.4 MG BOTTLE (25 TABS) SL PRN ×3 (00:01→00:13)
[2019-10-06 00:05] VITALS: BP 129/87
[2019-10-06 00:11] VITALS: BP 125/82
[2019-10-06 00:16] VITALS: BP 123/89
[2019-10-06] MEDS ORDERED: MORPHINE SULFATE 4 MG/ML, 1ML IVPush PRN (00:30)
[2019-10-06 02:47] LABS: BASOPHILS # (AUTO) 0.47 x10^3/uL (0-0.1); BASOPHILS % (AUTO) 3 % (0-1); EOSINOPHILS # (AUTO) 0.01 x10^3/uL (0-0.4); EOSINOPHILS % (AUTO) 0 % (1-7); LYMPHOCYTES % (AUTO) 10 % (22-44); MD NO; MEAN CORPUSCULAR HEMOGLOBIN 30.8 pg (27.5-34.5); MEAN CORPUSCULAR HGB CONC 33.9 g/dL (33.2-36.2); MEAN CORPUSCULAR VOLUME 90.7 fL (81-97); MEAN PLATELET VOLUME 7.9 fL (7.4-10.4); MONOCYTES # (AUTO) 1.04 x10^3/uL (0.2-0.8); MONOCYTES % (AUTO) 7 % (2-9); NEUTROPHILS # (AUTO) 12.45 x10^3/uL (1.8-6.8); NEUTROPHILS % (AUTO) 81 % (42-75); PLATELET COUNT 236 x10^3/uL (130-400); RED BLOOD COUNT 5.24 x10^6/uL (4.38-5.82); RED CELL DISTRIBUTION WIDTH 14.5 % (9.4-14.8)
[2019-10-06 02:56] LABS: ALANINE AMINOTRANSFERASE 49 U/L (12-78); ANION GAP 9 mmol/L (5-15); CALCIUM 8.8 mg/dL (8.5-10.1); CHLORIDE 106 mmol/L (98-107); CREATININE 1.24 mg/dL (0.7-1.3)
[2019-10-06 02:58] LABS: ALKALINE PHOSPHATASE 75 U/L (45-117); BILIRUBIN,TOTAL 0.9 mg/dL (0.2-1.0); TOTAL PROTEIN 7.5 g/dL (6.4-8.2)
[2019-10-06 03:03] LABS: TROPONIN I 0.024 ng/mL (0.000-0.045)
[2019-10-06] MEDS: HEPARIN 5,000 UNITS/ML, 1ML SQ SCH ×3 (06:18→21:11)
[2019-10-06] MEDS: DEXLANSOPRAZOLE 60 MG PO SCH (07:30)
[2019-10-06] MEDS: ASPIRIN 81 MG TABLET EC PO SCH (07:51)
[2019-10-06] MEDS: OLANZAPINE 10 MG TABLET PO SCH (07:51)
[2019-10-06] MEDS: ISOSORBIDE MONONITRATE ER 30 MG TABLET PO SCH (07:51)
[2019-10-06] MEDS: ESCITALOPRAM 10MG TABLET PO SCH (07:51)
[2019-10-06] MEDS: BUPROPION SR 150 MG TABLET PO SCH (08:01)
[2019-10-06 08:27] VITALS: BP 132/86
[2019-10-06] MEDS ORDERED: AMLODIPINE 5 MG TABLET PO SCH (09:00)
[2019-10-06] MEDS ORDERED: POTASSIUM CHLORIDE 20 MEQ TAB.ER.PRT PO ONE (09:30)
[2019-10-06] MEDS: ALPRazolam 1MG TAB PO SCH ×2 (12:25→21:11)
[2019-10-06 14:25] VITALS: BP 101/69
[2019-10-06 20:54] VITALS: BP 126/85
[2019-10-06] MEDS ORDERED: SIMVASTATIN 40 MG TABLET PO SCH (21:00)
[2019-10-06] MEDS ORDERED: MIRTAZAPINE 30 MG TABLET PO SCH (21:00)
[2019-10-06] MEDS ORDERED: SODIUM CHLORIDE 0.9% 1,000 ML IV SCH (21:57)
[2019-10-07 01:53] VITALS: BP 114/74
[2019-10-07 04:58] LABS: BASOPHILS # (AUTO) 0.08 x10^3/uL (0-0.1); BASOPHILS % (AUTO) 1 % (0-1); EOSINOPHILS % (AUTO) 1 % (1-7); LYMPHOCYTES # (AUTO) 2.71 x10^3/uL (1-3.4); LYMPHOCYTES % (AUTO) 28 % (22-44); MD NO; MEAN CORPUSCULAR HEMOGLOBIN 31.5 pg (27.5-34.5); MEAN CORPUSCULAR HGB CONC 33.9 g/dL (33.2-36.2); MEAN CORPUSCULAR VOLUME 92.8 fL (81-97); MEAN PLATELET VOLUME 7.6 fL (7.4-10.4); MONOCYTES # (AUTO) 1.04 x10^3/uL (0.2-0.8); MONOCYTES % (AUTO) 11 % (2-9); NEUTROPHILS # (AUTO) 5.78 x10^3/uL (1.8-6.8); NEUTROPHILS % (AUTO) 60 % (42-75); PLATELET COUNT 207 x10^3/uL (130-400); RED BLOOD COUNT 4.84 x10^6/uL (4.38-5.82); RED CELL DISTRIBUTION WIDTH 14.7 % (9.4-14.8)
[2019-10-07 05:12] LABS: ANION GAP 5 mmol/L (5-15); CALCIUM 7.9 mg/dL (8.5-10.1); CHLORIDE 110 mmol/L (98-107)
[2019-10-07 05:13] LABS: CREATININE 1.16 mg/dL (0.7-1.3)
[2019-10-07] MEDS: HEPARIN 5,000 UNITS/ML, 1ML SQ SCH (06:38)
[2019-10-07] MEDS: DEXLANSOPRAZOLE 60 MG PO SCH (07:22)
[2019-10-07] MEDS: BUPROPION SR 150 MG TABLET PO SCH (08:45)
[2019-10-07] MEDS: ASPIRIN 81 MG TABLET EC PO SCH (08:45)
[2019-10-07] MEDS: ISOSORBIDE MONONITRATE ER 30 MG TABLET PO SCH (08:46)
[2019-10-07] MEDS: ESCITALOPRAM 10MG TABLET PO SCH (08:46)
[2019-10-07] MEDS: OLANZAPINE 10 MG TABLET PO SCH (08:47)
[2019-10-07] MEDS: ALPRazolam 1MG TAB PO SCH (08:53)
[2019-10-07] MEDS ORDERED: LOSARTAN 50MG TABLET PO SCH (09:00)
[2019-10-07 09:23] VITALS: BP 139/95
== END 2019-10-07 10:56 | disposition home or self-care (01) | DRG 391 ==
LOC: ED 22:09 → EDIP 22:25 → 5SO 23:05 → DCLOUNGE 10-07 10:50
PROVIDERS: ADMIT Family Medicine; ATTEND Family Medicine
DX: A08.4 Viral intestinal infection, unspecified (principal); N17.0 Acute kidney failure with tubular necrosis; E78.5 Hyperlipidemia, unspecified; E86.0 Dehydration; E87.6 Hypokalemia; F20.9 Schizophrenia, unspecified; F32.9 Major depressive disorder, single episode, unspecified; F41.9 Anxiety disorder, unspecified; G47.33 Obstructive sleep apnea (adult) (pediatric); I10 Essential (primary) hypertension; I25.10 Atherosclerotic heart disease of native coronary artery without angina pectoris; I25.2 Old myocardial infarction; I73.9 Peripheral vascular disease, unspecified; J44.9 Chronic obstructive pulmonary disease, unspecified; K21.9 Gastro-esophageal reflux disease without esophagitis; Z86.79 Personal history of other diseases of the circulatory system; Z87.891 Personal history of nicotine dependence; Z95.1 Presence of aortocoronary bypass graft
CPT/HCPCS: 36415; 84145; 87046; 87400; 87427; 89055; 96374; 96375; 96376; 99285; J7620; 71046; 80048; 80053; 83690; 83735; 84484; 85025; 93005; 94640; G0378; J1644; J2550; J2060; J2270; J7030

== ENCOUNTER 2020-03-13 17:56 | Inpatient (IN) | payer OTHER, MEDICARE ==
[~2020-03-13] VITALS: Ht 177.8 cm; Wt 97.6 kg
[~2020-03-13 17:56] MED LIST changes: +DEXL60CA2 PO; +ESCI20TA PO; +OLAN15TA9 PO; -PANT20TA3 PO; +PANT20TA4 PO; +UMEC1DIS INH
--- NOTE | 2020-03-13 18:27 | NUR ---
PT ON ALL MONITORS. PT STATES CHEST PAIN FEELS SIMILAR TO PAST EPISODES. RATES 8-9/10 WITH SOME SOB. TOOK 81MG ASA AT HOME. ERP WAS IN TO SEE PT.
[2020-03-13] MEDS ORDERED: ASPIRIN 81 MG TABLET CHEW PO ONE (18:30)
[2020-03-13] MEDS ORDERED: SODIUM CHLORIDE FLUSH 10ML SYR IVF ONE (18:30)
[2020-03-13] MEDS ORDERED: NITROGLYCERIN SINGLE TAB 0.4 MG SL ONE (18:31)
[2020-03-13] MEDS ORDERED: ASPIRIN 81 MG TABLET CHEW ONE (18:32)
[2020-03-13 18:46] LABS: BASOPHILS # (AUTO) 0.07 x10^3/uL (0-0.1); BASOPHILS % (AUTO) 1 % (0-1); EOSINOPHILS # (AUTO) 0.11 x10^3/uL (0-0.4); EOSINOPHILS % (AUTO) 1 % (1-7); LYMPHOCYTES # (AUTO) 2.52 x10^3/uL (1-3.4); LYMPHOCYTES % (AUTO) 19 % (22-44); MD NO; MEAN CORPUSCULAR HEMOGLOBIN 30.4 pg (27.5-34.5); MEAN CORPUSCULAR HGB CONC 33.5 g/dL (33.2-36.2); MEAN PLATELET VOLUME 7.6 fL (7.4-10.4); MONOCYTES % (AUTO) 5 % (2-9); NEUTROPHILS # (AUTO) 9.85 x10^3/uL (1.8-6.8); NEUTROPHILS % (AUTO) 74 % (42-75); PLATELET COUNT 249 x10^3/uL (130-400); RED BLOOD COUNT 5.48 x10^6/uL (4.38-5.82)
[2020-03-13] MEDS: NITROGLYCERIN SINGLE TAB 0.4 MG SL PRN ×3 (18:48→22:29)
[2020-03-13 18:56] LABS: ALBUMIN 3.7 g/dL (3.4-5.0); ANION GAP 8 mmol/L (5-15); CALCIUM 8.9 mg/dL (8.5-10.1); CHLORIDE 106 mmol/L (98-107); CREATININE 1.18 mg/dL (0.7-1.3)
[2020-03-13 19:00] LABS: TROPONIN I < 0.015 ng/mL (0.000-0.045)
--- NOTE | 2020-03-13 19:04 | NUR ---
NO RELIEF FROM 1ST TAB SL NITRO. SECOND TAB GIVEN.
[2020-03-13] MEDS ORDERED: ONDANSETRON 2MG/ML, 2ML IVPush ONE (19:30)
[2020-03-13] MEDS ORDERED: MORPHINE SULFATE 4 MG/ML, 1ML IVPush PRN (19:30)
[2020-03-13] MEDS ORDERED: MORPHINE SULFATE 4 MG/ML, 1ML ONE (19:38)
[2020-03-13] MEDS ORDERED: ONDANSETRON 2MG/ML, 2ML ONE (19:38)
--- NOTE | 2020-03-13 19:47 | NUR ---
PT MEDICATED WITH MORPHINE PER ORDERS. VSS, UNDERSTANDS POC.
--- NOTE | 2020-03-13 20:01 | NUR ---
ERP WAS IN FOR RECHECK.
[2020-03-13] MEDS ORDERED: SODIUM CHLORIDE FLUSH 10ML SYR IVF PRN (20:30)
--- NOTE | 2020-03-13 20:58 | NUR ---
PT STATES MORPHINE WAS EFFECTIVE FOR HIS CHEST PAIN. VSS. NO S/S OF DISTRESS. BANK CREDIT CARD COLLECTION CLERK TAKING PT UPSTAIRS NOW.
[2020-03-13] MEDS ORDERED: ONDANSETRON 2MG/ML, 2ML IVPush PRN (21:00)
[2020-03-13] MEDS ORDERED: hydrALAzine 20 MG/ML, 1ML IVPush PRN (21:00)
[2020-03-13] MEDS ORDERED: ACETAMINOPHEN 325 MG TABLET PO PRN (21:00)
[2020-03-13] MEDS ORDERED: MIRTAZAPINE 30 MG TABLET PO SCH (21:00)
[2020-03-13] MEDS ORDERED: SIMVASTATIN 40 MG TABLET PO SCH (21:00)
[2020-03-13 21:10] VITALS: BP 102/66
[2020-03-13] MEDS: morphine SULFATE 10 MG/ML, 1ML IVPush PRN (23:27)
[2020-03-14 00:06] LABS: TROPONIN I < 0.015 ng/mL (0.000-0.045)
[2020-03-14 02:19] VITALS: BP 123/73
[2020-03-14] MEDS: morphine SULFATE 10 MG/ML, 1ML IVPush PRN (02:30)
[2020-03-14 06:42] LABS: CHOL/HDL RATIO 5.5; CHOLESTEROL, TOTAL 169 mg/dL (140-239); HDL CHOL % 18 % (26-37); HDL CHOLESTEROL (DIRECT) 31 mg/dL (40-60); LDL CHOLESTEROL,CALCULATED 114 mg/dL (54-169); LDL/HDL RATIO 3.7 (0.5-3.0); TRIGLYCERIDES 120 mg/dL (50-200); TROPONIN I < 0.015 ng/mL (0.000-0.045); VLDL CHOLESTEROL 24 mg/dL (0-25)
[2020-03-14] MEDS ORDERED: PANTOPRAZOLE 40MG TABLET PO SCH (07:30)
[2020-03-14 07:45] VITALS: BP 134/83
[2020-03-14] MEDS ORDERED: BUPROPION SR 150 MG TABLET PO SCH (09:00)
[2020-03-14] MEDS ORDERED: FLUTICASONE FUROATE 200MCG/INH INH SCH (09:00)
[2020-03-14] MEDS ORDERED: ISOSORBIDE MONONITRATE ER 30 MG TABLET PO SCH (09:00)
[2020-03-14] MEDS ORDERED: ASPIRIN 81 MG TABLET EC PO SCH (09:00)
[2020-03-14] MEDS ORDERED: LOSARTAN 50MG TABLET PO SCH (09:00)
[2020-03-14] MEDS ORDERED: HYDROCHLOROTHIAZIDE 12.5 MG CAPSULE PO SCH (09:00)
== END 2020-03-14 18:24 | disposition home or self-care (01) | DRG 303 ==
LOC: ED 19:52 → EDIP 21:06 → 5SO 21:10
PROVIDERS: ADMIT Family Medicine; ATTEND Internal Medicine
DX: I25.119 Atherosclerotic heart disease of native coronary artery with unspecified angina pectoris (principal); I25.3 Aneurysm of heart; J96.10 Chronic respiratory failure, unspecified whether with hypoxia or hypercapnia; E78.5 Hyperlipidemia, unspecified; F20.9 Schizophrenia, unspecified; F32.9 Major depressive disorder, single episode, unspecified; F41.9 Anxiety disorder, unspecified; G47.33 Obstructive sleep apnea (adult) (pediatric); G89.29 Other chronic pain; I11.0 Hypertensive heart disease with heart failure; I25.2 Old myocardial infarction; I50.9 Heart failure, unspecified; I71.4 Abdominal aortic aneurysm, without rupture; I73.9 Peripheral vascular disease, unspecified; J44.9 Chronic obstructive pulmonary disease, unspecified; K21.9 Gastro-esophageal reflux disease without esophagitis; Z87.891 Personal history of nicotine dependence; Z95.1 Presence of aortocoronary bypass graft; Z99.81 Dependence on supplemental oxygen; Z79.899 Other long term (current) drug therapy
CPT/HCPCS: 36415; 71045; 80048; 80061; 82040; 83880; 84484; 85025; 93005; 93306; 96374; 96375; 99285; G0378; J2405; J2270

== ENCOUNTER 2020-07-09 16:22 | Observation (INO) | payer OTHER, MEDICARE ==
[~2020-07-09] VITALS: Ht 177.8 cm; Wt 89.3 kg
--- NOTE | 2020-07-09 16:45 | NUR ---
assumed care of pt. pt here c/o L sided CP radiating to his arm with nausea and SOB that started today at 1200 when he was wathing TV. pt reports that he feels cold. pt is cool to the touch with mild diaphoresis. no vomiting. no apparent resp. distress. pt reports that he has a hx of 3 vessel CABG a few years ago with Dr. Allen. pt is calm and cooperative. pt also reports that he wears 2L O2 at nocs. SO at bedside pt placed on tester food products and O2 at 2L via NC for comfort EKG has been done in triage
[2020-07-09] MEDS ORDERED: MORPHINE SULFATE 4 MG/ML, 1ML ONE ×2 (17:26→20:31)
[2020-07-09] MEDS ORDERED: ONDANSETRON 2MG/ML, 2ML ONE (17:26)
--- NOTE | 2020-07-09 17:28 | NUR ---
repeat EKG has been completed Dr. Thorpe has been to bedside for eval CXR has been to bedside pt reports thta his initial pain upon arrival was 9/10, now 8/0 with O2
[2020-07-09] MEDS ORDERED: SODIUM CHLORIDE 0.9% 1,000ML IVBOLUS ONE (17:30)
[2020-07-09] MEDS ORDERED: SODIUM CHLORIDE FLUSH 10ML SYR IVF ONE (17:30)
[2020-07-09] MEDS ORDERED: ONDANSETRON 2MG/ML, 2ML IVPush ONE (17:30)
[2020-07-09] MEDS: MORPHINE SULFATE 4 MG/ML, 1ML IVPush PRN ×2 (17:32→20:32)
[2020-07-09 17:46] LABS: BASOPHILS % (AUTO) 1 % (0-1); EOSINOPHILS % (AUTO) 1 % (1-7); LYMPHOCYTES % (AUTO) 18 % (22-44); MEAN CORPUSCULAR HEMOGLOBIN 30.9 pg (27.5-34.5); MEAN CORPUSCULAR HGB CONC 33.7 g/dL (33.2-36.2); MEAN PLATELET VOLUME 7.7 fL (7.4-10.4); MONOCYTES % (AUTO) 7 % (2-9); NEUTROPHILS % (AUTO) 74 % (42-75); PLATELET COUNT 240 x10^3/uL (130-400); RED BLOOD COUNT 4.92 x10^6/uL (4.38-5.82); RED CELL DISTRIBUTION WIDTH 14.7 % (9.4-14.8)
[2020-07-09 17:50] LABS: MD NO
[2020-07-09 17:56] LABS: ALANINE AMINOTRANSFERASE 47 U/L (12-78); ALBUMIN 3.8 g/dL (3.4-5.0); ANION GAP 6 mmol/L (5-15); CALCIUM 8.9 mg/dL (8.5-10.1); CHLORIDE 107 mmol/L (98-107); CREATININE 1.02 mg/dL (0.7-1.3)
[2020-07-09] MEDS ORDERED: NITROGLYCERIN SINGLE TAB 0.4 MG SL ONE (17:57)
[2020-07-09 18:00] LABS: ALKALINE PHOSPHATASE 77 U/L (45-117); BILIRUBIN,TOTAL 0.6 mg/dL (0.2-1.0); TOTAL PROTEIN 6.9 g/dL (6.4-8.2); TROPONIN I < 0.015 ng/mL (0.000-0.045)
[2020-07-09] MEDS: NITROGLYCERIN SINGLE TAB 0.4 MG SL PRN ×3 (18:00→18:12)
--- NOTE | 2020-07-09 18:19 | NUR ---
PT STILL COMPLAINING OF 7/10 CHEST PAIN AFTER 3 DOSES OF NITRO
--- NOTE | 2020-07-09 19:13 | NUR ---
pt reports that his CP is still 02/23. pt sitting up on gurney in position of comfort. pt to be admitted. pt updated on POC report to Kandice DAVIS
--- NOTE | 2020-07-09 19:26 | NUR ---
BEDSIDE REPORT FROM RYAN ROCHA. PT SITTING IN BED, NADN, RESPIRATIONS EVEN AND UNLABORED. BEDRAILS UP X2, CALL LIGHT IN REACH. ALL NEEDS MET AT HIS TIME. AT BEDSIDE. PT AND UPDATED ON POC.
[2020-07-09] MEDS ORDERED: OMNIPAQUE 350 MG/ML, 75ML BOTTLE ONE (19:33)
[2020-07-09] MEDS ORDERED: ALPRazolam 1MG TAB PO PRN (21:30)
[2020-07-09] MEDS ORDERED: ACETAMINOPHEN 325 MG TABLET PO PRN (21:30)
[2020-07-09] MEDS ORDERED: POLYETHYLENE GLYCOL 17 GM PACKET PO PRN (21:30)
[2020-07-09] MEDS ORDERED: DOCUSATE 100 MG CAPSULE PO PRN (21:30)
[2020-07-09] MEDS ORDERED: NITROGLYCERIN 0.4 MG BOTTLE (25 TABS) SL PRN (21:30)
[2020-07-09] MEDS ORDERED: ONDANSETRON ODT 4 MG PO PRN (21:30)
[2020-07-09] MEDS ORDERED: HEPARIN 5,000 UNITS/ML, 1ML ONE (21:32)
[2020-07-09] MEDS ORDERED: KETOROLAC 30 MG/1 ML IVPush ONE (21:52)
[2020-07-09] MEDS ORDERED: KETOROLAC 30 MG/1 ML ONE (22:46)
[2020-07-09] MEDS: HEPARIN 5,000 UNITS/ML, 1ML SQ SCH (22:50)
[2020-07-10 01:15] LABS: TROPONIN I < 0.015 ng/mL (0.000-0.045)
--- NOTE | 2020-07-10 02:23 | NUR ---
LATE ENTRY SUMMARY NOTE: PT WAS MOVED TO HOSPITAL BED AT APPROX 2330. PT GOT UP AND SAT IN CHAIR WHILE BEDS WERE MOVED, HE WAS STEADY ON HIS FEET. PT PROVIDED WITH SNACKS. NADN. PT MEDICATED FOR CONTINUAL "SQUEEZING CP." PT DOES NOT ASK FOR PAIN MEDS BUT STATES 8/10 CP WHEN ASKED ABOUT IT. PT SLEEPING, RESPIRATIONS EVEN AND UNLABORED AFTER BEING MOVED ON TO HOSPITAL BED. NADN. PT HAS HAD CALL LIGHT IN REACH ENTIRE TIME. PT HAS CELL PHONE IN REACH.
--- NOTE | 2020-07-10 03:17 | NUR ---
PT AMBULATORY TO BATHROOM, STEADY GAIT. AWOKE FROM SLEEP TO CALL FOR HELP REMOVING MONITORING EQUIPMENT. NO COMPLAINTS OF PAIN.
[2020-07-10] MEDS ORDERED: morphine SULFATE 10 MG/ML, 1ML ONE ×2 (03:28→08:16)
[2020-07-10] MEDS: morphine SULFATE 10 MG/ML, 1ML IVPush PRN ×3 (03:33→20:15)
[2020-07-10] MEDS ORDERED: HEPARIN 5,000 UNITS/ML, 1ML ONE ×2 (05:51→15:45)
[2020-07-10] MEDS ORDERED: ASPIRIN 81 MG TABLET EC ONE (05:51)
[2020-07-10] MEDS: ASPIRIN 81 MG TABLET EC PO SCH (05:53)
[2020-07-10] MEDS: HEPARIN 5,000 UNITS/ML, 1ML SQ SCH ×2 (05:54→15:47)
[2020-07-10 06:04] LABS: TROPONIN I < 0.015 ng/mL (0.000-0.045)
--- NOTE | 2020-07-10 07:20 | NUR ---
Report received from CHIP RN. Pharm called in regards to am non-formulary medications, told that some not available.
--- NOTE | 2020-07-10 07:34 | NUR ---
Pt sleeping, resp even/unlabored. No needs at this time. VS updated.
[2020-07-10] MEDS ORDERED: OLANZAPINE 5 MG TABLET ONE (08:16)
[2020-07-10] MEDS: ESCITALOPRAM 10MG TABLET PO SCH (08:26)
[2020-07-10] MEDS: ISOSORBIDE MONONITRATE ER 30 MG TABLET PO SCH (08:26)
[2020-07-10] MEDS: BUPROPION SR 150 MG TABLET PO SCH (08:26)
[2020-07-10] MEDS: OLANZAPINE 5 MG TABLET PO SCH (08:27)
[2020-07-10] MEDS: LOSARTAN 50MG TABLET PO SCH (08:27)
--- NOTE | 2020-07-10 08:36 | NUR ---
Pt provided with am meds, pain medication, breakfast. No other needs at this time. VS updated.
[2020-07-10] MEDS ORDERED: HYDROCHLOROTHIAZIDE 12.5 MG CAPSULE PO SCH (09:00)
[2020-07-10] MEDS: (Umeclidinium Brm/Vilanterol Tr (Anoro Ellipta 62.5-25 Mcg Inh HOMEINH SCH (09:00)
--- NOTE | 2020-07-10 09:31 | NUR ---
Pt states improved pain post Morphine. No needs at this time. Vs updated.
--- NOTE | 2020-07-10 11:02 | NUR ---
hospitalist at bedside
[2020-07-10] MEDS ORDERED: KETOROLAC 30 MG/1 ML ONE (11:20)
[2020-07-10] MEDS: KETOROLAC 30 MG/1 ML IVPush PRN ×2 (11:23→17:29)
--- NOTE | 2020-07-10 11:32 | NUR ---
Medicated for pleuritic pain.
--- NOTE | 2020-07-10 11:54 | NUR ---
To have Lexiscan at 1300
--- NOTE | 2020-07-10 13:11 | NUR ---
Updated on POC, waiting for lexiscan, VS updated.
[2020-07-10] MEDS ORDERED: REGADENOSON 0.4 MG/5 ML SYRINGE ONE (14:20)
--- NOTE | 2020-07-10 14:40 | NUR ---
Pt at [facility]
--- NOTE | 2020-07-10 15:44 | NUR ---
Pt back from [employer]. No needs at this time.
--- NOTE | 2020-07-10 15:53 | NUR ---
ECHO at bedside
[2020-07-10 17:07] VITALS: BP 134/96
[2020-07-10 18:59] VITALS: BP 154/91
[2020-07-10] MEDS ORDERED: SIMVASTATIN 40 MG TABLET PO SCH (21:00)
[2020-07-10] MEDS ORDERED: MIRTAZAPINE 30 MG TABLET PO SCH (21:00)
[2020-07-10 21:38] VITALS: BP 149/92
[2020-07-11] MEDS: HEPARIN 5,000 UNITS/ML, 1ML SQ SCH ×2 (00:12→09:47)
[2020-07-11 00:41] VITALS: BP 151/92
[2020-07-11] MEDS: ASPIRIN 81 MG TABLET EC PO SCH (05:50)
[2020-07-11 06:51] LABS: BASOPHILS % (AUTO) 1 % (0-1); EOSINOPHILS % (AUTO) 1 % (1-7); LYMPHOCYTES % (AUTO) 18 % (22-44); MEAN CORPUSCULAR HEMOGLOBIN 31.3 pg (27.5-34.5); MEAN CORPUSCULAR HGB CONC 34.1 g/dL (33.2-36.2); MEAN PLATELET VOLUME 7.6 fL (7.4-10.4); MONOCYTES % (AUTO) 6 % (2-9); NEUTROPHILS % (AUTO) 74 % (42-75); PLATELET COUNT 261 x10^3/uL (130-400); RED BLOOD COUNT 5.17 x10^6/uL (4.38-5.82); RED CELL DISTRIBUTION WIDTH 14.4 % (9.4-14.8)
[2020-07-11 06:52] LABS: MD NO
[2020-07-11 06:59] LABS: ANION GAP 7 mmol/L (5-15); CALCIUM 9.1 mg/dL (8.5-10.1); CHLORIDE 107 mmol/L (98-107); CREATININE 0.86 mg/dL (0.7-1.3)
[2020-07-11] MEDS: (Umeclidinium Brm/Vilanterol Tr (Anoro Ellipta 62.5-25 Mcg Inh HOMEINH SCH (09:00)
[2020-07-11 09:05] VITALS: BP 140/96
[2020-07-11] MEDS: BUPROPION SR 150 MG TABLET PO SCH (09:48)
[2020-07-11] MEDS: ESCITALOPRAM 10MG TABLET PO SCH (09:48)
[2020-07-11] MEDS: OLANZAPINE 5 MG TABLET PO SCH (09:48)
[2020-07-11] MEDS: LOSARTAN 50MG TABLET PO SCH (09:48)
[2020-07-11] MEDS: ISOSORBIDE MONONITRATE ER 30 MG TABLET PO SCH (09:48)
[2020-07-11] MEDS ORDERED: HYDROCHLOROTH12.5 MG PO (10:31)
[2020-07-11] MEDS ORDERED: LOSA50TA14 PO (10:31)
== END 2020-07-11 12:40 | disposition home or self-care (01) ==
LOC: ED 19:58 → EDIP 20:04 → INTOOBSV 20:04 → ED 20:48 → 5SO 07-10 16:45 → DCLOUNGE 07-11 12:32
PROVIDERS: ADMIT Family Medicine; ATTEND Family Medicine
DX: R07.89 Other chest pain (principal); I25.10 Atherosclerotic heart disease of native coronary artery without angina pectoris; I10 Essential (primary) hypertension; I73.9 Peripheral vascular disease, unspecified; E78.5 Hyperlipidemia, unspecified; J44.9 Chronic obstructive pulmonary disease, unspecified; J96.10 Chronic respiratory failure, unspecified whether with hypoxia or hypercapnia; G47.33 Obstructive sleep apnea (adult) (pediatric); F20.9 Schizophrenia, unspecified; F41.8 Other specified anxiety disorders; K21.9 Gastro-esophageal reflux disease without esophagitis; G89.29 Other chronic pain; M54.9 Dorsalgia, unspecified; M54.2 Cervicalgia; D72.829 Elevated white blood cell count, unspecified; R91.1 Solitary pulmonary nodule; J32.9 Chronic sinusitis, unspecified; I25.2 Old myocardial infarction; F12.90 Cannabis use, unspecified, uncomplicated; F40.240 Claustrophobia; Z79.899 Other long term (current) drug therapy; Z95.1 Presence of aortocoronary bypass graft; Z87.891 Personal history of nicotine dependence; Z99.81 Dependence on supplemental oxygen; Z91.19 Patient's noncompliance with other medical treatment and regimen; Z86.79 Personal history of other diseases of the circulatory system
CPT/HCPCS: 36415; 70450; 71045; 71275; 78452; 80048; 80053; 83605; 84484; 85025; 85379; 93005; 93017; 93306; 96361; 96372; 96374; 96375; 96376; 99285; A9502; G0378; J1644; J1885; J2270; J2405; J2785; J7030; Q9967

== ENCOUNTER 2020-10-04 08:28 | Emergency (ER) | payer OTHER, MEDICARE ==
[~2020-10-04] VITALS: Ht 177.8 cm; Wt 97.5 kg
[~2020-10-04 08:28] MED LIST changes: -ESCI20TA PO; +ESCI20TA8 PO; +HYDROCHLOROTH12.5 MG PO; +LOSA50TA14 PO; -OXYC-302 PO; +OXYC1TAB14 PO
[2020-10-04] MEDS ORDERED: ASPIRIN 81 MG TABLET CHEW ONE (08:42)
--- NOTE | 2020-10-04 08:43 | NUR ---
PT MOVED TO ROOM 37. VERBAL ORDER FOR ASPIRIN OBTAINED AND ASPIRIN GIVEN.
--- NOTE | 2020-10-04 08:52 | NUR ---
PATIENT WALKED BACK FROM TRIAGE WITH CHIEF C/O CHEST PAIN X2 HOURS. PATIENT HAS HISTORY OF HEART ATTACH WITH TRIPLE BYPASS. PATIENT ALSO REPORTS LEFT ARM PAIN AND DIZZINESS, SOB AND NAUSEA. MINDAN, VSS, CALL LIGHT WITHIN REACH.
[2020-10-04] MEDS ORDERED: ONDANSETRON 2MG/ML, 2ML ONE (08:56)
[2020-10-04] MEDS ORDERED: MORPHINE SULFATE 4 MG/ML, 1ML ONE ×2 (08:56→10:26)
[2020-10-04 09:02] LABS: BASOPHILS % (AUTO) 1 % (0-1); EOSINOPHILS % (AUTO) 3 % (1-7); LYMPHOCYTES % (AUTO) 22 % (22-44); MEAN CORPUSCULAR HEMOGLOBIN 30.4 pg (27.5-34.5); MEAN CORPUSCULAR HGB CONC 33.7 g/dL (33.2-36.2); MEAN PLATELET VOLUME 7.4 fL (7.4-10.4); MONOCYTES % (AUTO) 8 % (2-9); NEUTROPHILS % (AUTO) 66 % (42-75); PLATELET COUNT 235 x10^3/uL (130-400); RED CELL DISTRIBUTION WIDTH 13.8 % (9.4-14.8)
[2020-10-04 09:05] LABS: MD NO
[2020-10-04] MEDS: MORPHINE SULFATE 4 MG/ML, 1ML IVPush PRN ×2 (09:08→10:28)
[2020-10-04 09:11] LABS: ALANINE AMINOTRANSFERASE 29 U/L (12-78); ALBUMIN 3.8 g/dL (3.4-5.0); ANION GAP 5 mmol/L (5-15); CALCIUM 8.9 mg/dL (8.5-10.1); CHLORIDE 110 mmol/L (98-107); CREATININE 1.06 mg/dL (0.7-1.3)
[2020-10-04 09:15] LABS: ALKALINE PHOSPHATASE 82 U/L (45-117); BILIRUBIN,TOTAL 0.4 mg/dL (0.2-1.0); TOTAL PROTEIN 6.8 g/dL (6.4-8.2); TROPONIN I < 0.015 ng/mL (0.000-0.045)
[2020-10-04] MEDS ORDERED: NITROGLYCERIN OINT 2%, 1GM TP ONE ×2 (09:22→10:00)
--- NOTE | 2020-10-04 09:24 | NUR ---
MOTORCYCLE REPAIR SHOP SUPERVISOR AT BEDSIDE FOR REPEAT EKG. NITRO PASTE APPLIED, PATIENT REPORTS 9/10 CHEST PAIN AFTER MORPHINE.
[2020-10-04] MEDS ORDERED: SODIUM CHLORIDE FLUSH 10ML SYR IVF ONE (09:30)
[2020-10-04] MEDS ORDERED: ONDANSETRON 2MG/ML, 2ML IVPush ONE (09:30)
[2020-10-04] MEDS ORDERED: ASPIRIN 81 MG TABLET CHEW PO ONE (09:30)
--- NOTE | 2020-10-04 10:07 | NUR ---
PATIENT TO IMAGING.
--- NOTE | 2020-10-04 10:28 | NUR ---
PATIENT BACK FROM CT, C/O 04/26 CHEST PAIN, SECOND DOSE OF MORPHINE ADMINISTERED, VSS, CALL LIGHT WITHIN REACH. WAITING FOR IMAGING RESULTS.
[2020-10-04] MEDS ORDERED: OMNIPAQUE 350 MG/ML, 100ML BOTTLE ONE (10:29)
--- NOTE | 2020-10-04 11:39 | NUR ---
TASK RN: PT RESTING COMFORTABLY ON [employer] WATCHING TV.
--- NOTE | 2020-10-04 12:07 | NUR ---
DR. TORRES AT BEDSIDE FOR ADMISSION EVALUATION.
[2020-10-04] MEDS ORDERED: KETOROLAC 30 MG/1 ML ONE (12:15)
--- NOTE | 2020-10-04 12:19 | NUR ---
REPORT GIVEN TO RYAN DE LA ROSA ON CARDIAC TELEMETRY.
[2020-10-04 12:26] VITALS: BP 121/79
[2020-10-04] MEDS ORDERED: KETOROLAC 30 MG/1 ML IVPush ONE (12:30)
--- NOTE | 2020-10-04 13:15 | NUR ---
Patient given discharge instructions and they have confirmed that they understand the instructions. Patient ambulatory with steady gait.
== END 2020-10-04 13:17 | disposition home or self-care (01) ==
LOC: ED 09:26
DX: R07.89 Other chest pain (principal); I11.9 Hypertensive heart disease without heart failure; R94.31 Abnormal electrocardiogram [ECG] [EKG]; E78.5 Hyperlipidemia, unspecified; I25.2 Old myocardial infarction; J44.9 Chronic obstructive pulmonary disease, unspecified; I25.10 Atherosclerotic heart disease of native coronary artery without angina pectoris; F17.200 Nicotine dependence, unspecified, uncomplicated; Z95.1 Presence of aortocoronary bypass graft
CPT/HCPCS: 36415; 71045; 71275; 80053; 84484; 85025; 93005; 96374; 96375; 96376; 99285; J1885; J2270; J2405; Q9967

== ENCOUNTER 2020-10-16 09:42 | Emergency (ER) | payer OTHER, MEDICARE ==
[~2020-10-16] VITALS: Ht 177.8 cm; Wt 95.0 kg
[2020-10-16 09:43] VITALS: BP 121/85
--- NOTE | 2020-10-16 09:44 | NUR ---
PT BIB [facility]. PT C/O 01/24 LEFT SIDED CHEST PAIN. PT HAS PREVIOUS [place] AND TRIPLE BYPASS. PT STATES THAT IT FEELS LIKE PREVIOUS [place].
[2020-10-16] MEDS ORDERED: MORPHINE SULFATE 4 MG/ML, 1ML ONE (09:48)
[2020-10-16] MEDS ORDERED: SODIUM CHLORIDE FLUSH 10ML SYR IVF ONE (10:00)
[2020-10-16] MEDS ORDERED: MORPHINE SULFATE 4 MG/ML, 1ML IVPush PRN (10:00)
[2020-10-16 10:18] LABS: BASOPHILS % (AUTO) 1 % (0-1); EOSINOPHILS % (AUTO) 2 % (1-7); LYMPHOCYTES % (AUTO) 18 % (22-44); MD NO; MEAN CORPUSCULAR HEMOGLOBIN 30.5 pg (27.5-34.5); MEAN CORPUSCULAR HGB CONC 34.2 g/dL (33.2-36.2); MEAN PLATELET VOLUME 7.8 fL (7.4-10.4); MONOCYTES % (AUTO) 7 % (2-9); NEUTROPHILS % (AUTO) 72 % (42-75); PLATELET COUNT 237 x10^3/uL (130-400); RED BLOOD COUNT 5.13 x10^6/uL (4.38-5.82)
[2020-10-16 10:19] LABS: ALBUMIN 3.9 g/dL (3.4-5.0); ANION GAP 6 mmol/L (5-15); CHLORIDE 109 mmol/L (98-107); CREATININE 1.03 mg/dL (0.7-1.3)
[2020-10-16 10:21] LABS: D-DIMER 0.84 ug/mlFEU (0.00-0.52); INTERNATIONAL NORMALIZED RATIO 0.96 (0.93-1.1); PROTHROMBIN TIME 10.3 Seconds (9.6-11.5)
[2020-10-16 10:22] LABS: TROPONIN I < 0.015 ng/mL (0.000-0.045)
--- NOTE | 2020-10-16 11:43 | NUR ---
discharge instructions reviewed with pt. all questions answered at this time.
== END 2020-10-16 11:45 | disposition home or self-care (01) ==
LOC: ED 11:01
DX: R07.2 Precordial pain (principal); R07.89 Other chest pain; R06.02 Shortness of breath; I10 Essential (primary) hypertension; J44.9 Chronic obstructive pulmonary disease, unspecified; I25.2 Old myocardial infarction; I25.10 Atherosclerotic heart disease of native coronary artery without angina pectoris; E78.5 Hyperlipidemia, unspecified; Z88.9 Allergy status to unspecified drugs, medicaments and biological substances; Z87.891 Personal history of nicotine dependence
CPT/HCPCS: 36415; 71045; 80048; 82040; 83880; 84484; 85025; 85379; 85610; 93005; 96374; 99285; J2270

== ENCOUNTER 2020-10-26 16:57 | Inpatient (IN) | payer OTHER, MEDICARE ==
[~2020-10-26] VITALS: Ht 177.8 cm; Wt 93.7 kg
--- NOTE | 2020-10-26 17:10 | NUR ---
ESTHETICIAN FACIALIST NOTE: EKG TAKEN IN TRIAGE, REVIEWED BY KADY BLEVINS. PT TAKEN TO ROOM 34 VIA WC.
--- NOTE | 2020-10-26 17:37 | NUR ---
BREAK RN- PT C/O SUDDEN ONSET CP WHILE SITTING WATCHING TV AT 1700 TODAY. PT DESCRIBES CP SHARP AND RADIATES TO LEFT ARM AND BACK. PT ON CONTINUOUS CARDIAC AND SPO2 MONITORS AND REMAINS IN A NORMAL SINUS RHYTHM. PIV STARTED AND BLOOD DRAWN. AWAITING MD.
[2020-10-26] MEDS ORDERED: ASPIRIN 81 MG TABLET CHEW PO ONE (19:00)
[2020-10-26] MEDS ORDERED: ASPIRIN 81 MG TABLET CHEW ONE (19:00)
[2020-10-26] MEDS ORDERED: NITROGLYCERIN SINGLE TAB 0.4 MG SL ONE (19:00)
[2020-10-26] MEDS ORDERED: NITROGLYCERIN SINGLE TAB 0.4 MG SL PRN (19:00)
[2020-10-26 19:14] LABS: ALANINE AMINOTRANSFERASE 19 U/L (12-78); ALBUMIN 3.6 g/dL (3.4-5.0); ANION GAP 5 mmol/L (5-15); CALCIUM 8.5 mg/dL (8.5-10.1); CHLORIDE 108 mmol/L (98-107)
[2020-10-26] MEDS ORDERED: MORPHINE SULFATE 4 MG/ML, 1ML ONE ×2 (19:14→20:53)
[2020-10-26 19:18] LABS: ALKALINE PHOSPHATASE 74 U/L (45-117); BILIRUBIN,TOTAL 0.4 mg/dL (0.2-1.0); TOTAL PROTEIN 6.9 g/dL (6.4-8.2); TROPONIN I < 0.015 ng/mL (0.000-0.045)
[2020-10-26 19:20] LABS: BASOPHILS % (AUTO) 1 % (0-1); EOSINOPHILS % (AUTO) 4 % (1-7); LYMPHOCYTES % (AUTO) 30 % (22-44); MEAN CORPUSCULAR HEMOGLOBIN 29.9 pg (27.5-34.5); MEAN CORPUSCULAR HGB CONC 33.3 g/dL (33.2-36.2); MEAN PLATELET VOLUME 8.1 fL (7.4-10.4); MONOCYTES % (AUTO) 7 % (2-9); NEUTROPHILS % (AUTO) 58 % (42-75); PLATELET COUNT 247 x10^3/uL (130-400); RED CELL DISTRIBUTION WIDTH 13.9 % (9.4-14.8)
[2020-10-26 19:21] LABS: MD NO
[2020-10-26] MEDS ORDERED: MORPHINE SULFATE 4 MG/ML, 1ML IVPush ONE (19:30)
[2020-10-26] MEDS ORDERED: ONDANSETRON 2MG/ML, 2ML ONE (20:53)
[2020-10-26] MEDS ORDERED: morphine SULFATE 10 MG/ML, 1ML IVPush ONE (21:00)
[2020-10-26] MEDS ORDERED: ONDANSETRON 2MG/ML, 2ML IVPush ONE (21:00)
[2020-10-26] MEDS ORDERED: ONDANSETRON 2MG/ML, 2ML IVPush PRN (22:30)
[2020-10-26] MEDS ORDERED: ACETAMINOPHEN 325 MG TABLET PO PRN (22:30)
[2020-10-26] MEDS ORDERED: hydrALAzine 20 MG/ML, 1ML IVPush PRN (22:30)
[2020-10-26 23:39] VITALS: BP 129/83
[2020-10-26] MEDS ORDERED: NITROGLYCERIN 0.4 MG BOTTLE (25 TABS) SL ONE (23:43)
[2020-10-26] MEDS: NITROGLYCERIN 0.4 MG BOTTLE (25 TABS) SL PRN (23:44)
[2020-10-26] MEDS: MIRTAZAPINE 30 MG TABLET PO SCH (23:59)
[2020-10-27] MEDS ORDERED: NITROGLYCERIN 0.4 MG/SPRAY SL PRN
[2020-10-27 00:01] LABS: TROPONIN I < 0.015 ng/mL (0.000-0.045)
[2020-10-27] MEDS: morphine SULFATE 10 MG/ML, 1ML IVPush PRN ×3 (00:57→20:44)
[2020-10-27 00:59] VITALS: BP 115/72
[2020-10-27 05:39] LABS: ANION GAP 3 mmol/L (5-15); CALCIUM 8.4 mg/dL (8.5-10.1); CHLORIDE 107 mmol/L (98-107)
[2020-10-27 05:42] LABS: BASOPHILS % (AUTO) 1 % (0-1); EOSINOPHILS % (AUTO) 6 % (1-7); LYMPHOCYTES % (AUTO) 39 % (22-44); MEAN CORPUSCULAR HEMOGLOBIN 30.6 pg (27.5-34.5); MEAN CORPUSCULAR HGB CONC 34.3 g/dL (33.2-36.2); MEAN PLATELET VOLUME 7.5 fL (7.4-10.4); MONOCYTES % (AUTO) 8 % (2-9); NEUTROPHILS % (AUTO) 46 % (42-75); PLATELET COUNT 226 x10^3/uL (130-400); RED BLOOD COUNT 4.74 x10^6/uL (4.38-5.82); RED CELL DISTRIBUTION WIDTH 13.7 % (9.4-14.8)
[2020-10-27 05:44] LABS: AMPHETAMINE SCREEN, URINE Negative (Negative); BARBITURATE SCREEN, URINE Negative (Negative); BENZODIAZEPINE SCREEN, URINE Positive (Negative); CANNABINOID SCREEN, URINE Positive (Negative); COCAINE SCREEN, URINE Negative (Negative)
[2020-10-27 05:46] LABS: CHOLESTEROL, TOTAL 154 mg/dL (140-239); CREATININE 0.99 mg/dL (0.7-1.3); HDL CHOL % 20 % (26-37); HDL CHOLESTEROL (DIRECT) 31 mg/dL (40-60); LDL CHOLESTEROL,CALCULATED 93 mg/dL (54-169); TRIGLYCERIDES 151 mg/dL (50-200); TROPONIN I < 0.015 ng/mL (0.000-0.045); VLDL CHOLESTEROL 30 mg/dL (0-25)
[2020-10-27 05:46] LABS: METHADONE SCREEN, URINE Negative (Negative); OPIATE SCREEN, URINE Positive (Negative)
[2020-10-27 06:02] LABS: MD NO
[2020-10-27 06:44] VITALS: BP 146/93
[2020-10-27] MEDS: HYDROCHLOROTHIAZIDE 12.5 MG CAPSULE PO SCH (08:34)
[2020-10-27] MEDS: PANTOPRAZOLE 40MG TABLET PO SCH (08:34)
[2020-10-27] MEDS: LOSARTAN 25MG TABLET PO SCH (08:34)
[2020-10-27] MEDS: ISOSORBIDE MONONITRATE ER 30 MG TABLET PO SCH (08:34)
[2020-10-27] MEDS: ASPIRIN 81 MG TABLET EC PO SCH (08:34)
[2020-10-27] MEDS: BUPROPION SR 150 MG TABLET PO SCH (08:34)
[2020-10-27] MEDS ORDERED: NITR0.4T28 SL (11:56)
[2020-10-27] MEDS: NITROGLYCERIN 0.4 MG BOTTLE (25 TABS) SL PRN ×3 (12:07→20:28)
[2020-10-27] MEDS ORDERED: ALPRazolam 1MG TAB ONE (12:11)
[2020-10-27] MEDS ORDERED: ALPRazolam 1MG TAB PO ONE (12:30)
[2020-10-27 13:00] VITALS: BP 126/76
[2020-10-27] MEDS: LORazepam 2 MG/ML, 1ML IVPush PRN (17:58)
[2020-10-27 18:17] LABS: TROPONIN I < 0.015 ng/mL (0.000-0.045)
[2020-10-27 19:54] VITALS: BP 127/86
[2020-10-27] MEDS: SIMVASTATIN 40 MG TABLET PO SCH (20:28)
[2020-10-27] MEDS: MIRTAZAPINE 30 MG TABLET PO SCH (20:28)
[2020-10-28] MEDS: LORazepam 2 MG/ML, 1ML IVPush PRN (00:45)
[2020-10-28 00:52] VITALS: BP 144/90
[2020-10-28] MEDS: PANTOPRAZOLE 40MG TABLET PO SCH (05:43)
[2020-10-28 06:38] VITALS: BP 148/100
[2020-10-28] MEDS ORDERED: LORazepam 2 MG/ML, 1ML ONE (08:27)
[2020-10-28 08:36] VITALS: BP 157/90
[2020-10-28] MEDS: LOSARTAN 25MG TABLET PO SCH (08:48)
[2020-10-28] MEDS: HYDROCHLOROTHIAZIDE 12.5 MG CAPSULE PO SCH (08:48)
[2020-10-28] MEDS: ISOSORBIDE MONONITRATE ER 30 MG TABLET PO SCH (08:48)
[2020-10-28] MEDS: ASPIRIN 81 MG TABLET EC PO SCH (08:48)
[2020-10-28] MEDS: BUPROPION SR 150 MG TABLET PO SCH (08:49)
[2020-10-28] MEDS: morphine SULFATE 10 MG/ML, 1ML IVPush PRN ×2 (08:51→09:33)
[2020-10-28 09:31] VITALS: BP 121/88
[2020-10-28] MEDS ORDERED: LORazepam 2 MG/ML, 1ML IVPush PRN (11:00)
[2020-10-28 13:18] VITALS: BP 137/91
[2020-10-28] MEDS: CYCLOBENZAPRINE 10 MG TABLET PO SCH ×2 (16:56→20:40)
[2020-10-28 19:02] VITALS: BP 164/108
[2020-10-28] MEDS: MIRTAZAPINE 30 MG TABLET PO SCH (20:40)
[2020-10-28] MEDS: SIMVASTATIN 40 MG TABLET PO SCH (20:40)
[2020-10-29 00:50] VITALS: BP 126/92
[2020-10-29 05:23] LABS: ALANINE AMINOTRANSFERASE 27 U/L (12-78); ALBUMIN 3.7 g/dL (3.4-5.0); ANION GAP 7 mmol/L (5-15); CALCIUM 8.7 mg/dL (8.5-10.1); CHLORIDE 106 mmol/L (98-107); CREATININE 1.09 mg/dL (0.7-1.3)
[2020-10-29 05:25] LABS: ALKALINE PHOSPHATASE 80 U/L (45-117); BASOPHILS % (AUTO) 1 % (0-1); BILIRUBIN,TOTAL 0.7 mg/dL (0.2-1.0); EOSINOPHILS % (AUTO) 2 % (1-7); LYMPHOCYTES % (AUTO) 30 % (22-44); MEAN CORPUSCULAR HEMOGLOBIN 30.5 pg (27.5-34.5); MEAN CORPUSCULAR HGB CONC 34.2 g/dL (33.2-36.2); MEAN PLATELET VOLUME 7.3 fL (7.4-10.4); MONOCYTES % (AUTO) 9 % (2-9); NEUTROPHILS % (AUTO) 59 % (42-75); PLATELET COUNT 295 x10^3/uL (130-400); RED BLOOD COUNT 5.37 x10^6/uL (4.38-5.82); RED CELL DISTRIBUTION WIDTH 14.3 % (9.4-14.8); TOTAL PROTEIN 7.1 g/dL (6.4-8.2)
[2020-10-29 05:31] LABS: MD NO
[2020-10-29] MEDS: PANTOPRAZOLE 40MG TABLET PO SCH (06:29)
[2020-10-29 06:31] VITALS: BP 99/64
[2020-10-29 08:56] VITALS: BP 129/91
[2020-10-29] MEDS: ISOSORBIDE MONONITRATE ER 30 MG TABLET PO SCH (08:57)
[2020-10-29] MEDS: CYCLOBENZAPRINE 10 MG TABLET PO SCH ×3 (08:57→20:19)
[2020-10-29] MEDS: LOSARTAN 25MG TABLET PO SCH (08:57)
[2020-10-29] MEDS: HYDROCHLOROTHIAZIDE 12.5 MG CAPSULE PO SCH (08:58)
[2020-10-29] MEDS: BUPROPION SR 150 MG TABLET PO SCH (08:58)
[2020-10-29] MEDS: ASPIRIN 81 MG TABLET EC PO SCH (08:58)
[2020-10-29] MEDS ORDERED: VERAPAMIL 2.5 MG/ML, 2ML ONE (12:50)
[2020-10-29] MEDS ORDERED: LIDOCAINE-MPF 1%, 5ML ONE (12:50)
[2020-10-29] MEDS ORDERED: MIDAZOLAM 1 MG/ML, 5ML ONE (12:50)
[2020-10-29] MEDS ORDERED: FENTANYL PF 100 MCG/2ML ONE (12:50)
[2020-10-29] MEDS ORDERED: HEPARIN 1,000 UNITS/ML, 10ML ONE (12:50)
[2020-10-29] MEDS ORDERED: LIDOCAINE 1%, 20ML ONE (12:52)
[2020-10-29 13:48] VITALS: BP 123/82
[2020-10-29] MEDS ORDERED: SODIUM CHLORIDE 0.9% 1,000 ML IV SCH (14:00)
[2020-10-29 18:33] VITALS: BP 131/93
[2020-10-29] MEDS: SIMVASTATIN 40 MG TABLET PO SCH (20:19)
[2020-10-29] MEDS: MIRTAZAPINE 30 MG TABLET PO SCH (20:20)
[2020-10-30 00:23] VITALS: BP 126/83
[2020-10-30] MEDS ORDERED: TRAZODONE 50MG TABLET PO PRN (00:30)
[2020-10-30 04:34] LABS: ANION GAP 7 mmol/L (5-15); CALCIUM 8.7 mg/dL (8.5-10.1); CHLORIDE 105 mmol/L (98-107); CREATININE 1.12 mg/dL (0.7-1.3)
[2020-10-30] MEDS: PANTOPRAZOLE 40MG TABLET PO SCH (06:34)
[2020-10-30 06:57] VITALS: BP 116/81
[2020-10-30] MEDS: ISOSORBIDE MONONITRATE ER 30 MG TABLET PO SCH (08:34)
[2020-10-30] MEDS: BUPROPION SR 150 MG TABLET PO SCH (08:34)
[2020-10-30] MEDS: ASPIRIN 81 MG TABLET EC PO SCH (08:36)
[2020-10-30] MEDS: HYDROCHLOROTHIAZIDE 12.5 MG CAPSULE PO SCH (08:36)
[2020-10-30] MEDS: LOSARTAN 25MG TABLET PO SCH (08:36)
[2020-10-30] MEDS: CYCLOBENZAPRINE 10 MG TABLET PO SCH (08:38)
== END 2020-10-30 10:45 | disposition home or self-care (01) | DRG 287 ==
LOC: ED 17:27 → EDIP 22:16 → INTOOBSV 22:16 → 5SO 22:55 → OBSVTOIN 10-27 16:36 → DCLOUNGE 10-30 10:35
PROVIDERS: ADMIT Family Medicine; ATTEND Hospitalist
PROC: 4A023N7 Measurement of Cardiac Sampling and Pressure, Left Heart, Percutaneous Approach (ICD-10-PCS; principal; 2020-10-29)
PROC: B2111ZZ Fluoroscopy of Multiple Coronary Arteries using Low Osmolar Contrast (ICD-10-PCS; 2020-10-29)
PROC: B2131ZZ Fluoroscopy of Multiple Coronary Artery Bypass Grafts using Low Osmolar Contrast (ICD-10-PCS; 2020-10-29)
PROC: B2151ZZ Fluoroscopy of Left Heart using Low Osmolar Contrast (ICD-10-PCS; 2020-10-29)
PROC: B2181ZZ Fluoroscopy of Left Internal Mammary Bypass Graft using Low Osmolar Contrast (ICD-10-PCS; 2020-10-29)
DX: R07.89 Other chest pain (principal); E78.5 Hyperlipidemia, unspecified; F20.9 Schizophrenia, unspecified; F31.9 Bipolar disorder, unspecified; F43.10 Post-traumatic stress disorder, unspecified; G47.33 Obstructive sleep apnea (adult) (pediatric); G89.29 Other chronic pain; I10 Essential (primary) hypertension; I25.10 Atherosclerotic heart disease of native coronary artery without angina pectoris; I25.2 Old myocardial infarction; I73.9 Peripheral vascular disease, unspecified; J44.9 Chronic obstructive pulmonary disease, unspecified; Z80.0 Family history of malignant neoplasm of digestive organs; K21.9 Gastro-esophageal reflux disease without esophagitis; Z82.49 Family history of ischemic heart disease and other diseases of the circulatory system; Z87.891 Personal history of nicotine dependence; Z95.1 Presence of aortocoronary bypass graft; Z98.1 Arthrodesis status
CPT/HCPCS: 36415; 96374; 96375; 96376; 99285; J3490; 71045; 80048; 80053; 80061; 80307; 84484; 85025; 93005; 93459; 99156; C1760; C1769; C1894; G0378; J1644; J2250; J2405; J3010; J2060; J2270; J7030; Q9967

== ENCOUNTER 2020-11-12 07:35 | Observation (INO) | payer OTHER, MEDICARE ==
[~2020-11-12] VITALS: Ht 177.8 cm; Wt 94.0 kg
[~2020-11-12 07:35] MED LIST changes: +NITR0.4T28 SL
--- NOTE | 2020-11-12 07:35 | NUR ---
PT BROUGHT BACK TO ROOM AT CODE 250. PT HERE AT [facility] FOR ULTRA SOUND WHEN HE DEVELOPED CP, "SIMILAR TO PRIOR HEART ATTACKS". PT EXPERIENCED CP LAST NIGHT AND AGAIN THIS AM WITH SOB, LEFT ARM PAIN, AND SWEATING. PT TOOK NITRO THIS AM. THE PATIENT IS ALERT ORIENTED, WARM AND DRY.
[2020-11-12] MEDS ORDERED: ASPIRIN 81 MG TABLET CHEW ONE (07:52)
[2020-11-12] MEDS ORDERED: NITROGLYCERIN SINGLE TAB 0.4 MG SL ONE (07:52)
[2020-11-12] MEDS ORDERED: NITROGLYCERIN SINGLE TAB 0.4 MG SL PRN ×2 (08:00→10:00)
[2020-11-12] MEDS ORDERED: ASPIRIN 81 MG TABLET CHEW PO ONE (08:00)
[2020-11-12] MEDS ORDERED: SODIUM CHLORIDE FLUSH 10ML SYR IVF ONE (08:00)
[2020-11-12 08:02] LABS: BASOPHILS % (AUTO) 1 % (0-1); EOSINOPHILS % (AUTO) 4 % (1-7); LYMPHOCYTES % (AUTO) 24 % (22-44); MEAN CORPUSCULAR HEMOGLOBIN 30.4 pg (27.5-34.5); MEAN CORPUSCULAR HGB CONC 34.1 g/dL (33.2-36.2); MEAN PLATELET VOLUME 7.1 fL (7.4-10.4); MONOCYTES % (AUTO) 6 % (2-9); NEUTROPHILS % (AUTO) 64 % (42-75); PLATELET COUNT 262 x10^3/uL (130-400); RED BLOOD COUNT 5.09 x10^6/uL (4.38-5.82); RED CELL DISTRIBUTION WIDTH 13.9 % (9.4-14.8)
[2020-11-12 08:14] LABS: ALBUMIN 3.7 g/dL (3.4-5.0); ANION GAP 5 mmol/L (5-15); CALCIUM 8.9 mg/dL (8.5-10.1); CHLORIDE 109 mmol/L (98-107); CREATININE 0.97 mg/dL (0.7-1.3)
[2020-11-12 08:18] LABS: TROPONIN I < 0.015 ng/mL (0.000-0.045)
[2020-11-12 08:25] LABS: MD SCAN
--- NOTE | 2020-11-12 08:31 | NUR ---
PT resting inbed, call light in reach
--- NOTE | 2020-11-12 08:59 | NUR ---
Report to Abilio DAVIS
--- NOTE | 2020-11-12 09:00 | NUR ---
REPORT FROM DEVIN DAVIS WITH ASSESSMENT-VSS ON COUNTRY PRINTER APPRENTICE UPDATED ON ESTIMATED POC
[2020-11-12] MEDS ORDERED: MORPHINE SULFATE 4 MG/ML, 1ML IVPush PRN (09:30)
--- NOTE | 2020-11-12 09:40 | NUR ---
PIV PLACED MEDICATED PER EMAR FOR CONTINUED CHEST CHEST PAIN AT 9/10 RADIATING TO LEFT ARM/JAW
[2020-11-12] MEDS ORDERED: MORPHINE SULFATE 4 MG/ML, 1ML ONE (09:41)
[2020-11-12] MEDS ORDERED: ONDANSETRON 2MG/ML, 2ML ONE (09:41)
[2020-11-12] MEDS ORDERED: ACETAMINOPHEN 325 MG TABLET PO PRN (10:00)
[2020-11-12] MEDS ORDERED: ONDANSETRON 2MG/ML, 2ML IVPush PRN (10:00)
[2020-11-12] MEDS ORDERED: ONDANSETRON ODT 4 MG PO PRN (10:00)
[2020-11-12] MEDS ORDERED: ENALAPRILAT 1.25 MG/ML, 2ML IVPush PRN (10:00)
[2020-11-12 10:12] LABS: TROPONIN I < 0.015 ng/mL (0.000-0.045)
--- NOTE | 2020-11-12 10:16 | NUR ---
pain improved to 4/10 transported to 512 by emt on monitor
[2020-11-12 10:56] VITALS: BP 142/87
[2020-11-12] MEDS: ALPRazolam 1MG TAB PO SCH ×2 (11:57→21:51)
[2020-11-12] MEDS: ISOSORBIDE MONONITRATE ER 30 MG TABLET PO SCH (11:57)
[2020-11-12] MEDS: BUPROPION SR 150 MG TABLET PO SCH (11:58)
[2020-11-12] MEDS: LOSARTAN 50MG TABLET PO SCH (11:59)
[2020-11-12 13:41] VITALS: BP 129/86
[2020-11-12] MEDS: morphine SULFATE 10 MG/ML, 1ML IVPush PRN ×3 (13:54→21:51)
[2020-11-12 16:00] LABS: TROPONIN I < 0.015 ng/mL (0.000-0.045)
[2020-11-12 19:30] VITALS: BP 125/85
[2020-11-12] MEDS ORDERED: TRAZODONE 50MG TABLET PO SCH (21:00)
[2020-11-12] MEDS ORDERED: SIMVASTATIN 40 MG TABLET PO SCH (21:00)
[2020-11-12] MEDS ORDERED: MIRTAZAPINE 30 MG TABLET PO SCH (21:00)
[2020-11-12] MEDS ORDERED: ALPRazolam 1MG TAB PO SCH (21:00)
[2020-11-13 03:19] VITALS: BP 121/74
[2020-11-13] MEDS: morphine SULFATE 10 MG/ML, 1ML IVPush PRN (04:13)
[2020-11-13] MEDS ORDERED: ASPIRIN 325 MG TABLET EC PO SCH (06:00)
[2020-11-13 07:30] VITALS: BP 137/93
[2020-11-13 08:54] VITALS: BP 127/91
[2020-11-13] MEDS: ISOSORBIDE MONONITRATE ER 30 MG TABLET PO SCH (08:57)
[2020-11-13] MEDS: ALPRazolam 1MG TAB PO SCH (08:57)
[2020-11-13] MEDS: BUPROPION SR 150 MG TABLET PO SCH (08:57)
[2020-11-13] MEDS: LOSARTAN 50MG TABLET PO SCH (08:58)
[2020-11-13] MEDS ORDERED: BUPROPION SR 150 MG TABLET PO SCH (09:00)
[2020-11-13] MEDS ORDERED: ISOSORBIDE MONONITRATE ER 30 MG TABLET PO SCH (09:00)
[2020-11-13] MEDS ORDERED: LOSARTAN 50MG TABLET PO SCH (09:00)
== END 2020-11-13 11:15 | disposition home or self-care (01) ==
LOC: ED 08:16 → 5SO 09:20 → INTOOBSV 09:20 → SUATTDRO 09:25 → DCLOUNGE 11-13 11:10
PROVIDERS: ADMIT Hospitalist; ATTEND Hospitalist
DX: R07.89 Other chest pain (principal); I25.10 Atherosclerotic heart disease of native coronary artery without angina pectoris; I10 Essential (primary) hypertension; E78.5 Hyperlipidemia, unspecified; G89.29 Other chronic pain; G47.33 Obstructive sleep apnea (adult) (pediatric); J44.9 Chronic obstructive pulmonary disease, unspecified; K21.9 Gastro-esophageal reflux disease without esophagitis; E11.9 Type 2 diabetes mellitus without complications; I25.2 Old myocardial infarction; F20.9 Schizophrenia, unspecified; F41.8 Other specified anxiety disorders; F12.10 Cannabis abuse, uncomplicated; Z79.82 Long term (current) use of aspirin; Z79.899 Other long term (current) drug therapy; Z87.891 Personal history of nicotine dependence; Z86.79 Personal history of other diseases of the circulatory system; Z91.14 Patient's other noncompliance with medication regimen; Z95.1 Presence of aortocoronary bypass graft
CPT/HCPCS: 36415; 71045; 80048; 82040; 83880; 84484; 85025; 93005; 96374; 96376; 99285; G0378; J2270

== ENCOUNTER 2020-11-23 08:31 | Outpatient (CLI) | payer OTHER, MEDICARE ==
[2020-11-23] MEDS ORDERED: GABA-827 PO (10:15)
== END 2020-11-23 23:59 | disposition home or self-care (01) ==
LOC: CVU 08:31
PROVIDERS: ATTEND Surgery Vascular Surgery
DX: I71.4 Abdominal aortic aneurysm, without rupture (principal)
CPT/HCPCS: 93978

== ENCOUNTER 2020-11-23 09:47 | Emergency (ER) | payer OTHER, MEDICARE ==
[~2020-11-23] VITALS: Ht 177.8 cm; Wt 96.8 kg
--- NOTE | 2020-11-23 09:58 | NUR ---
EKG IN TRIAGE
[2020-11-23] MEDS ORDERED: NITROGLYCERIN SINGLE TAB 0.4 MG SL ONE (10:06)
[2020-11-23] MEDS ORDERED: ASPIRIN 81 MG TABLET CHEW ONE (10:07)
[2020-11-23] MEDS ORDERED: GABA-827 PO (10:15)
[2020-11-23] MEDS ORDERED: MORPHINE SULFATE 4 MG/ML, 1ML ONE (10:16)
[2020-11-23] MEDS ORDERED: ONDANSETRON 2MG/ML, 2ML ONE (10:16)
--- NOTE | 2020-11-23 10:18 | NUR ---
PT. IS A & O X 4 WITH A GCS OF 15. SKIN IS PINK, WARM AND DRY. NECK IS MIDLINE WITHOUT JVD NOTED. LUNGS ARE CTA THROUGHOUT. S1 S2 NOTED WITHOUT MURMURS, RUBS OR GALLOPS. PT.'S ABD. IS SOFT AND NON-TENDER WITH BS + X 4 QUADS. PT. LYONS WNL. PULSES ARE + 2 THROUGHOUT. CP MONITOR IS IN PLACE WITH IV ACCESS ESTABLISHED. 12 LEAD EKG DONE. PT. WAS MEDICATED PER MD ORDERS BY THE PRIMARY RN ROSANA. PT.'S PCXR WAS DONE. DR. LAZARO IS AT THE BEDSIDE. SIDERAILS REMAIN UP X 2 WITH THE CALL LIGHT IN PLACE.
[2020-11-23] MEDS ORDERED: SODIUM CHLORIDE FLUSH 10ML SYR IVF ONE (10:30)
[2020-11-23] MEDS ORDERED: NITROGLYCERIN SINGLE TAB 0.4 MG SL PRN (10:30)
[2020-11-23] MEDS ORDERED: HYDROmorphone 1 MG/ML, 1ML INJ ONE (10:30)
[2020-11-23] MEDS ORDERED: ASPIRIN 81 MG TABLET CHEW PO ONE (10:30)
[2020-11-23] MEDS ORDERED: ONDANSETRON 2MG/ML, 2ML IVPush ONE (10:30)
[2020-11-23] MEDS ORDERED: MORPHINE SULFATE 4 MG/ML, 1ML IVPush PRN (10:30)
[2020-11-23 10:32] LABS: BASOPHILS % (AUTO) 1 % (0-1); EOSINOPHILS % (AUTO) 3 % (1-7); LYMPHOCYTES % (AUTO) 22 % (22-44); MEAN CORPUSCULAR HEMOGLOBIN 29.2 pg (27.5-34.5); MEAN CORPUSCULAR HGB CONC 33.2 g/dL (33.2-36.2); MEAN PLATELET VOLUME 7.5 fL (7.4-10.4); MONOCYTES % (AUTO) 7 % (2-9); NEUTROPHILS % (AUTO) 67 % (42-75); PLATELET COUNT 249 x10^3/uL (130-400); RED BLOOD COUNT 5.34 x10^6/uL (4.38-5.82); RED CELL DISTRIBUTION WIDTH 14.1 % (9.4-14.8)
[2020-11-23 10:33] LABS: MD NO
[2020-11-23 10:43] LABS: ALBUMIN 3.9 g/dL (3.4-5.0); ANION GAP 6 mmol/L (5-15); CHLORIDE 110 mmol/L (98-107)
--- NOTE | 2020-11-23 10:45 | NUR ---
pt medicated per oct. pt stated no relief from nitro at this time. pt medicated for pain with morphine per order. pt states relief of symptoms at this time. pt resting comfortably in bed. cardiac, nibp, and o2 monitoring in place.
[2020-11-23 10:49] LABS: ALANINE AMINOTRANSFERASE 27 U/L (12-78); ALKALINE PHOSPHATASE 88 U/L (45-117); BILIRUBIN,TOTAL 0.4 mg/dL (0.2-1.0); CREATININE 0.93 mg/dL (0.7-1.3); TOTAL PROTEIN 7.2 g/dL (6.4-8.2); TROPONIN I < 0.015 ng/mL (0.000-0.045)
[2020-11-23 10:56] VITALS: BP 117/82
--- NOTE | 2020-11-23 10:57 | NUR ---
RECEIVED REPORT FROM ROSANA DAVIS. ASSUMING CARE AT THIS TIME. PT RESTING COMFORTABLY ON [employer] WATCHING TV.
--- NOTE | 2020-11-23 11:09 | NUR ---
ALL RESULTS ARE BACK AT THIS TIME. CHART UP FOR RECHECK.
== END 2020-11-23 11:43 | disposition home or self-care (01) ==
LOC: ED 10:48
DX: R07.89 Other chest pain (principal); J44.9 Chronic obstructive pulmonary disease, unspecified; I25.2 Old myocardial infarction; I10 Essential (primary) hypertension; I25.810 Atherosclerosis of coronary artery bypass graft(s) without angina pectoris; E78.5 Hyperlipidemia, unspecified; E11.9 Type 2 diabetes mellitus without complications; Z87.891 Personal history of nicotine dependence
CPT/HCPCS: 36415; 71045; 80053; 84484; 85025; 93005; 96374; 96375; 99285; J2270; J2405

== ENCOUNTER 2020-12-03 13:25 | Emergency (ER) | payer OTHER, MEDICARE ==
[~2020-12-03] VITALS: Ht 177.8 cm; Wt 97.6 kg
[~2020-12-03 13:25] MED LIST changes: +GABA-827 PO
--- NOTE | 2020-12-03 13:41 | NUR ---
PT CHANGED INTO GOWN, MONITORS IN PLACE. PA AT BS. CALL LIGHT WITHIN REACH
[2020-12-03 14:09] LABS: BASOPHILS % (AUTO) 1 % (0-1); EOSINOPHILS % (AUTO) 3 % (1-7); LYMPHOCYTES % (AUTO) 24 % (22-44); MEAN CORPUSCULAR HEMOGLOBIN 29.5 pg (27.5-34.5); MEAN CORPUSCULAR HGB CONC 33.4 g/dL (33.2-36.2); MEAN PLATELET VOLUME 7.3 fL (7.4-10.4); MONOCYTES % (AUTO) 7 % (2-9); NEUTROPHILS % (AUTO) 65 % (42-75); PLATELET COUNT 274 x10^3/uL (130-400); RED BLOOD COUNT 4.99 x10^6/uL (4.38-5.82); RED CELL DISTRIBUTION WIDTH 14.5 % (9.4-14.8)
[2020-12-03] MEDS ORDERED: ONDANSETRON 2MG/ML, 2ML ONE (14:09)
[2020-12-03] MEDS ORDERED: MORPHINE SULFATE 4 MG/ML, 1ML ONE (14:09)
[2020-12-03 14:14] LABS: ALBUMIN 3.8 g/dL (3.4-5.0); ANION GAP 3 mmol/L (5-15); CALCIUM 8.6 mg/dL (8.5-10.1); CHLORIDE 110 mmol/L (98-107)
[2020-12-03 14:17] LABS: MD NO
[2020-12-03 14:19] LABS: CREATININE 0.93 mg/dL (0.7-1.3); TROPONIN I < 0.015 ng/mL (0.000-0.045)
[2020-12-03] MEDS ORDERED: SODIUM CHLORIDE FLUSH 10ML SYR IVF ONE (14:30)
[2020-12-03] MEDS ORDERED: ONDANSETRON 2MG/ML, 2ML IVPush ONE (14:30)
[2020-12-03] MEDS ORDERED: MORPHINE SULFATE 4 MG/ML, 1ML IVPush PRN (14:30)
--- NOTE | 2020-12-03 14:46 | NUR ---
PT SITTING ON GURNEY CALMLY, WATCHING TV. NADN/VSS. CALL LIGHT WITHIN REACH.
[2020-12-03 15:20] VITALS: BP 124/80
--- NOTE | 2020-12-03 15:26 | NUR ---
Patient given discharge instructions and they have confirmed that they understand the instructions. Patient ambulatory with steady gait.
== END 2020-12-03 15:28 | disposition home or self-care (01) ==
LOC: ED 15:12
DX: R07.89 Other chest pain (principal); J44.9 Chronic obstructive pulmonary disease, unspecified; I25.2 Old myocardial infarction; I10 Essential (primary) hypertension; I25.810 Atherosclerosis of coronary artery bypass graft(s) without angina pectoris; E11.9 Type 2 diabetes mellitus without complications; E78.5 Hyperlipidemia, unspecified; Z87.891 Personal history of nicotine dependence
CPT/HCPCS: 36415; 71045; 80048; 82040; 84484; 85025; 93005; 96374; 96375; 99285; J2270; J2405

== ENCOUNTER → 2020-12-17 | Outpatient (CLI) | payer OTHER, MEDICARE | END | disposition home or self-care (01) | LOC: RAD 06:41 | PROVIDERS: ATTEND Internal Medicine Gastroenterology | DX: K22.2 Esophageal obstruction (principal); K44.9 Diaphragmatic hernia without obstruction or gangrene; R13.14 Dysphagia, pharyngoesophageal phase; K22.4 Dyskinesia of esophagus; K21.9 Gastro-esophageal reflux disease without esophagitis; R10.32 Left lower quadrant pain; K31.89 Other diseases of stomach and duodenum; R63.4 Abnormal weight loss; Z86.010 Personal history of colon polyps | CPT/HCPCS: 74220 ==

== ENCOUNTER 2020-12-27 16:53 | Emergency (ER) | payer OTHER, MEDICARE ==
[~2020-12-27] VITALS: Ht 177.8 cm; Wt 102.5 kg
--- NOTE | 2020-12-27 17:04 | NUR ---
EKG DONE IN TRIAGE.
--- NOTE | 2020-12-27 17:09 | NUR ---
PT AMBULATORY TO ROOM FROM TRIAGE, PT CHANGED INTO GOWN, MONITORS IN PLACE. CALL LIGHT WITHIN REACH.
[2020-12-27] MEDS ORDERED: ONDANSETRON 2MG/ML, 2ML ONE (17:15)
[2020-12-27] MEDS ORDERED: MORPHINE SULFATE 4 MG/ML, 1ML ONE (17:15)
--- NOTE | 2020-12-27 17:29 | NUR ---
xray at bs
[2020-12-27] MEDS ORDERED: NITROGLYCERIN OINT 2%, 1GM TP ONE ×2 (17:30→17:31)
[2020-12-27] MEDS ORDERED: MORPHINE SULFATE 4 MG/ML, 1ML IVPush PRN (17:30)
[2020-12-27] MEDS ORDERED: ONDANSETRON 2MG/ML, 2ML IVPush ONE (17:30)
[2020-12-27] MEDS ORDERED: SODIUM CHLORIDE FLUSH 10ML SYR IVF ONE (17:30)
[2020-12-27 17:40] LABS: BASOPHILS % (AUTO) 1 % (0-1); EOSINOPHILS % (AUTO) 4 % (1-7); LYMPHOCYTES % (AUTO) 26 % (22-44); MD NO; MEAN CORPUSCULAR HEMOGLOBIN 28.9 pg (27.5-34.5); MEAN CORPUSCULAR HGB CONC 33.1 g/dL (33.2-36.2); MEAN PLATELET VOLUME 7.3 fL (7.4-10.4); MONOCYTES % (AUTO) 11 % (2-9); NEUTROPHILS % (AUTO) 58 % (42-75); PLATELET COUNT 248 x10^3/uL (130-400); RED BLOOD COUNT 4.92 x10^6/uL (4.38-5.82); RED CELL DISTRIBUTION WIDTH 14.4 % (9.4-14.8)
[2020-12-27 17:52] LABS: ALANINE AMINOTRANSFERASE 35 U/L (12-78); ALBUMIN 3.7 g/dL (3.4-5.0); ANION GAP 6 mmol/L (5-15); CALCIUM 8.8 mg/dL (8.5-10.1); CHLORIDE 109 mmol/L (98-107); CREATININE 0.97 mg/dL (0.7-1.3)
[2020-12-27 17:57] LABS: ALKALINE PHOSPHATASE 81 U/L (45-117); BILIRUBIN,TOTAL 0.4 mg/dL (0.2-1.0); TOTAL PROTEIN 6.7 g/dL (6.4-8.2); TROPONIN I < 0.015 ng/mL (0.000-0.045)
--- NOTE | 2020-12-27 18:38 | NUR ---
PT SITTING ON GURNEY, WATCHING TV. NADN/VSS. CALL LIGHT WITHIN REACH. NO NEEDS AT THIS TIME
--- NOTE | 2020-12-27 18:45 | NUR ---
REPORT TO RYAN ANGUIANO
--- NOTE | 2020-12-27 19:21 | NUR ---
ASSUMED CARE OF PT FROM RYAN CHAUDHARY. PT RESTING IN [facility], MONITORING IN PLACE, NADN AT THIS TIME, PER PT NO NEEDS AT THIS TIME, WCTM.
[2020-12-27 21:14] LABS: TROPONIN I < 0.015 ng/mL (0.000-0.045)
[2020-12-27 21:55] VITALS: BP 134/83
== END 2020-12-27 21:57 | disposition home or self-care (01) ==
LOC: ED 18:42
DX: R07.2 Precordial pain (principal); I10 Essential (primary) hypertension; E11.9 Type 2 diabetes mellitus without complications; I25.810 Atherosclerosis of coronary artery bypass graft(s) without angina pectoris; E78.5 Hyperlipidemia, unspecified; I25.2 Old myocardial infarction; J44.9 Chronic obstructive pulmonary disease, unspecified
CPT/HCPCS: 36415; 71045; 80053; 84484; 85025; 93005; 96374; 96375; 99285; J2270; J2405

== ENCOUNTER 2021-01-11 16:48 | Emergency (ER) | payer OTHER, MEDICARE ==
[~2021-01-11] VITALS: Ht 177.8 cm; Wt 98.2 kg
--- NOTE | 2021-01-11 16:53 | NUR ---
ELISHA RN: PT STATES HE TOOK ASA 81MG PO
[2021-01-11] MEDS ORDERED: SODIUM CHLORIDE FLUSH 10ML SYR IVF ONE (17:30)
[2021-01-11 17:38] LABS: MEAN CORPUSCULAR HEMOGLOBIN 29.4 pg (27.5-34.5); MEAN PLATELET VOLUME 7.1 fL (7.4-10.4); PLATELET COUNT 237 x10^3/uL (130-400); RED CELL DISTRIBUTION WIDTH 15.1 % (9.4-14.8)
[2021-01-11 17:51] LABS: ALBUMIN 3.6 g/dL (3.4-5.0); ANION GAP 7 mmol/L (5-15); CALCIUM 8.9 mg/dL (8.5-10.1); CHLORIDE 109 mmol/L (98-107)
[2021-01-11 17:55] LABS: TROPONIN I < 0.015 ng/mL (0.000-0.045)
[2021-01-11 17:57] LABS: MD YES
[2021-01-11 17:59] LABS: <PLATELET ESTIMATE> ADEQUATE; <PLT MORPHOLOGY> NORMAL PLT MORPH; <RBC MORPHOLOGY> NORMAL; BANDS%(MANUAL) 1 % (0-7); EOS% (MANUAL) 3 % (1-7); LYMPH#(MANUAL) 2.12 x10^3/uL (1-3.4); LYMPHS% (MANUAL) 21 % (22-44); MONOS#(MANUAL) 0.61 x10^3/uL (0.3-2.7); MONOS% (MANUAL) 6 % (2-9); SEG#(MANUAL) 6.97 x10^3/uL (1.8-6.8); SEGS% (MANUAL) 69 % (42-75)
[2021-01-11] MEDS ORDERED: HYDROcodone/APAP 5/325 TABLET ONE (18:20)
[2021-01-11] MEDS ORDERED: ONDANSETRON 2MG/ML, 2ML ONE (18:23)
[2021-01-11] MEDS ORDERED: MORPHINE SULFATE 4 MG/ML, 1ML ONE (18:23)
[2021-01-11] MEDS ORDERED: ONDANSETRON 2MG/ML, 2ML IVPush ONE (18:30)
[2021-01-11] MEDS ORDERED: MORPHINE SULFATE 4 MG/ML, 1ML IVPush PRN (18:30)
--- NOTE | 2021-01-11 18:47 | NUR ---
BEDSIDE REPORT FROM HEATH DAVIS, PT CARE TRANSFERRED AT THIS TIME.
[2021-01-11 18:56] VITALS: BP 137/87
--- NOTE | 2021-01-11 18:57 | NUR ---
Patient given discharge instructions and they have confirmed that they understand the instructions. Patient ambulatory with steady gait. NAD, PT WAITING FOR TO GET HERE TO COME PICK HIM UP. DENIES ADDITIONAL QUESTIONS OR NEEDS AT THIS TIME. WCTM UNTIL HERE FOR SAFE DC.
[2021-01-11] MEDS ORDERED: HYDROcodone/APAP 5/325 TABLET PO ONE (19:00)
== END 2021-01-11 19:28 | disposition home or self-care (01) ==
LOC: ED 17:20
DX: R07.89 Other chest pain (principal); I10 Essential (primary) hypertension; E78.5 Hyperlipidemia, unspecified; I25.2 Old myocardial infarction; J44.9 Chronic obstructive pulmonary disease, unspecified; E11.9 Type 2 diabetes mellitus without complications; I25.810 Atherosclerosis of coronary artery bypass graft(s) without angina pectoris
CPT/HCPCS: 36415; 71045; 80048; 82040; 84484; 85025; 93005; 96374; 96375; 99285; J2270; J2405

== ENCOUNTER 2021-02-06 11:37 | Emergency (ER) | payer OTHER, MEDICARE ==
[~2021-02-06] VITALS: Ht 177.8 cm; Wt 95.0 kg
[~2021-02-06 11:37] MED LIST changes: +MIRT-14 PO; +MIRT-15 PO; -MIRT-34 PO; -MIRT30TA4 PO
--- NOTE | 2021-02-06 11:51 | NUR ---
Sudden on n/v/sternal pressure with radiation to left jaw/left arm rated at 8/10 at 10am. Hx of HI/cabg- last evaluated 2016 EMs administered 324mg of asa/4 of zofran and nitro tab x1. Their ecg non specific On arrival pain remains 8/10, vss, non diaphoretic, ecg obtained
[2021-02-06] MEDS ORDERED: MORPHINE SULFATE 4 MG/ML, 1ML ONE ×2 (12:05→13:21)
[2021-02-06] MEDS: MORPHINE SULFATE 4 MG/ML, 1ML IVPush PRN ×2 (12:08→13:23)
[2021-02-06 12:37] LABS: BASOPHILS % (AUTO) 1 % (0-1); EOSINOPHILS % (AUTO) 2 % (1-7); LYMPHOCYTES % (AUTO) 29 % (22-44); MEAN CORPUSCULAR HEMOGLOBIN 29.1 pg (27.5-34.5); MEAN CORPUSCULAR HGB CONC 33.4 g/dL (33.2-36.2); MEAN PLATELET VOLUME 7.3 fL (7.4-10.4); MONOCYTES % (AUTO) 8 % (2-9); NEUTROPHILS % (AUTO) 61 % (42-75); PLATELET COUNT 231 x10^3/uL (130-400); RED BLOOD COUNT 4.89 x10^6/uL (4.38-5.82); RED CELL DISTRIBUTION WIDTH 15.6 % (9.4-14.8)
[2021-02-06 12:46] LABS: ALANINE AMINOTRANSFERASE 26 U/L (12-78); ALBUMIN 3.4 g/dL (3.4-5.0); ANION GAP 8 mmol/L (5-15); CALCIUM 8.6 mg/dL (8.5-10.1); CHLORIDE 110 mmol/L (98-107); CREATININE 1.01 mg/dL (0.7-1.3)
[2021-02-06 12:54] LABS: ALKALINE PHOSPHATASE 83 U/L (45-117); BILIRUBIN,TOTAL 0.5 mg/dL (0.2-1.0); TOTAL PROTEIN 6.6 g/dL (6.4-8.2); TROPONIN I < 0.015 ng/mL (0.000-0.045)
--- NOTE | 2021-02-06 12:58 | NUR ---
REPORT FROM ROB, ASSUME CARE OF PT AT THIS TIME.
--- NOTE | 2021-02-06 12:59 | NUR ---
ALL RESULTS BACK, PT FOR RECHECK.
--- NOTE | 2021-02-06 13:04 | NUR ---
report to julio baez
--- NOTE | 2021-02-06 13:27 | NUR ---
ADD ON ORDER FOR REPEAT TROP, DRAWN BY COLLETER. PT REMEDICATED FOR 8/10 PAIN TO CHEST/EPIGASTRIC REGION. VSS. CALL LIGHT WITHIN REACH.
[2021-02-06 13:49] LABS: TROPONIN I < 0.015 ng/mL (0.000-0.045)
--- NOTE | 2021-02-06 14:03 | NUR ---
REPEAT TROP NEG, PT FOR RECHECK.
[2021-02-06 15:19] VITALS: BP 122/61
== END 2021-02-06 15:21 | disposition home or self-care (01) ==
LOC: ED 12:02
DX: R07.89 Other chest pain (principal); J44.9 Chronic obstructive pulmonary disease, unspecified; I25.10 Atherosclerotic heart disease of native coronary artery without angina pectoris; I25.2 Old myocardial infarction; E78.5 Hyperlipidemia, unspecified; I10 Essential (primary) hypertension; Z95.1 Presence of aortocoronary bypass graft
CPT/HCPCS: 36415; 71045; 80053; 84484; 85025; 93005; 96374; 96376; 99285; J2270

== ENCOUNTER 2021-04-10 12:39 | Emergency (ER) | payer OTHER, MEDICARE ==
[~2021-04-10] VITALS: Ht 177.8 cm; Wt 102.8 kg
[~2021-04-10 12:39] MED LIST changes: +OLAN10TA69 PO; -OLAN10TA9 PO; +OLAN15TA14 PO; -OLAN15TA9 PO; +OLAN5TAB69 PO; -OLAN5TAB9 PO; +OXYC1TAB12 PO; -OXYC1TAB14 PO
--- NOTE | 2021-04-10 13:30 | NUR ---
PATIENT PRESENTS TO ER WITH LEFT CHEST PAIN THAT STARTED AROUND 1100 TODAY WITH PAIN RATED A 9/10. PATIENT STATES THAT THE PAIN RADIATES TO THE LEFT ARM AND ASSOCIATED SYMPTOMS OF N/V AND SOB. AGGRAVATING FACTORS OF EXERCISE AND MOVEMENT. NO RELIEF FROM NITRO OR ASPIRIN TAKEN AT HOME 324MG PO
--- NOTE | 2021-04-10 13:55 | NUR ---
PATIENT ASKING FOR MEDICATION FOR CHEST PAIN. SPOKE WITH RAUL JIMENEZ AND HE SAID THAT WHOEVER THE DOCTOR IS WHO ASSIGNS THEMSELF TO THAT PATIENT WILL HAVE TO PUT IN MEDICATIONS
[2021-04-10 13:57] LABS: BASOPHILS % (AUTO) 0 % (0-1); EOSINOPHILS % (AUTO) 4 % (1-7); LYMPHOCYTES % (AUTO) 28 % (22-44); MEAN CORPUSCULAR HGB CONC 33.4 g/dL (33.2-36.2); MEAN PLATELET VOLUME 7.4 fL (7.4-10.4); MONOCYTES % (AUTO) 8 % (2-9); NEUTROPHILS % (AUTO) 60 % (42-75); PLATELET COUNT 250 x10^3/uL (130-400); RED CELL DISTRIBUTION WIDTH 15.3 % (9.4-14.8)
[2021-04-10 13:59] LABS: ALANINE AMINOTRANSFERASE 23 U/L (12-78); ALBUMIN 3.4 g/dL (3.4-5.0); ANION GAP 5 mmol/L (5-15); CALCIUM 8.8 mg/dL (8.5-10.1); CHLORIDE 109 mmol/L (98-107)
[2021-04-10 14:04] LABS: ALKALINE PHOSPHATASE 95 U/L (45-117); BILIRUBIN,TOTAL 0.5 mg/dL (0.2-1.0); TOTAL PROTEIN 6.9 g/dL (6.4-8.2); TROPONIN I < 0.015 ng/mL (0.000-0.045)
--- NOTE | 2021-04-10 15:07 | NUR ---
ASKED ED ATTENDING IRVIN SEE FOR MORPHINE 4MG IVP AND ZOFRAN 4MG IVP FOR PAIN AND NAUSEA. OKAYED AND RN TO PLACE ORDER FOR MD
[2021-04-10] MEDS ORDERED: ONDANSETRON 2MG/ML, 2ML ONE (15:11)
[2021-04-10] MEDS ORDERED: MORPHINE SULFATE 4 MG/ML, 1ML ONE (15:12)
[2021-04-10] MEDS ORDERED: MORPHINE SULFATE 4 MG/ML, 1ML IVPush STA (15:14)
[2021-04-10] MEDS ORDERED: ONDANSETRON 2MG/ML, 2ML IVPush ONE (15:30)
[2021-04-10 15:45] VITALS: BP 136/78
== END 2021-04-10 16:02 | disposition home or self-care (01) ==
LOC: ED 14:47
DX: R07.89 Other chest pain (principal); R06.02 Shortness of breath; R94.31 Abnormal electrocardiogram [ECG] [EKG]; Z98.61 Coronary angioplasty status; Z95.1 Presence of aortocoronary bypass graft
CPT/HCPCS: 36415; 71045; 80053; 84484; 85025; 93005; 96374; 96375; 99285; J2270; J2405

== ENCOUNTER 2021-05-06 17:34 | Emergency (ER) | payer OTHER, MEDICARE ==
[~2021-05-06] VITALS: Ht 175.3 cm; Wt 103.5 kg
[2021-05-06] MEDS ORDERED: ASPIRIN 81 MG TABLET CHEW PO ONE (18:00)
[2021-05-06] MEDS ORDERED: SODIUM CHLORIDE FLUSH 10ML SYR IVF ONE (18:00)
[2021-05-06 18:50] LABS: ALBUMIN 3.9 g/dL (3.4-5.0); ANION GAP 7 mmol/L (5-15); CALCIUM 8.7 mg/dL (8.5-10.1); CHLORIDE 106 mmol/L (98-107)
[2021-05-06 18:56] LABS: ALANINE AMINOTRANSFERASE 25 U/L (12-78); ALKALINE PHOSPHATASE 98 U/L (45-117); BASOPHILS % (AUTO) 1 % (0-1); BILIRUBIN,TOTAL 0.5 mg/dL (0.2-1.0); EOSINOPHILS % (AUTO) 3 % (1-7); LYMPHOCYTES % (AUTO) 27 % (22-44); MEAN CORPUSCULAR HEMOGLOBIN 29.7 pg (27.5-34.5); MEAN CORPUSCULAR HGB CONC 34.7 g/dL (33.2-36.2); MEAN PLATELET VOLUME 7.6 fL (7.4-10.4); MONOCYTES % (AUTO) 8 % (2-9); NEUTROPHILS % (AUTO) 61 % (42-75); PLATELET COUNT 286 x10^3/uL (130-400); RED BLOOD COUNT 4.98 x10^6/uL (4.38-5.82); RED CELL DISTRIBUTION WIDTH 15.1 % (9.4-14.8); TOTAL PROTEIN 7.5 g/dL (6.4-8.2); TROPONIN I < 0.015 ng/mL (0.000-0.045)
--- NOTE | 2021-05-06 20:14 | NUR ---
TASK RN: VS UPDATED.
--- NOTE | 2021-05-06 20:30 | NUR ---
pt to room from lobby
[2021-05-06] MEDS ORDERED: ASPIRIN 81 MG TABLET CHEW ONE (20:43)
[2021-05-06] MEDS ORDERED: NITROGLYCERIN SINGLE TAB 0.4 MG SL ONE (21:14)
[2021-05-06] MEDS ORDERED: NITROGLYCERIN 0.4 MG BOTTLE (25 TABS) SL ONE (21:30)
[2021-05-06 21:40] LABS: TROPONIN I < 0.015 ng/mL (0.000-0.045)
--- NOTE | 2021-05-06 22:15 | NUR ---
Patient given discharge instructions and they have confirmed that they understand the instructions. Patient ambulatory with steady gait. NAD, all questions answered appropriately, denies additional needs at this time. No personal belongings left in room after discharge.
[2021-05-06 22:16] VITALS: BP 157/90
== END 2021-05-06 22:17 | disposition home or self-care (01) ==
LOC: ED 22:06
DX: R07.2 Precordial pain (principal); I10 Essential (primary) hypertension; E11.9 Type 2 diabetes mellitus without complications; E78.5 Hyperlipidemia, unspecified; J44.9 Chronic obstructive pulmonary disease, unspecified; I25.2 Old myocardial infarction
CPT/HCPCS: 36415; 71045; 80053; 84484; 85025; 93005; 99285